=== PATIENT | female | born 1980 | race Caucasian/White ===

== ENCOUNTER 2017-01-07 14:35 | Inpatient (IN) ==
[2017-01-07] MEDS ORDERED: 0.9 % Sodium Chloride 1,000 ML IVC ONE (14:45)
--- NOTE | 2017-01-07 14:50 | Emergency Department Note ---
Disposition Clinical Impression: Focal neurological deficit, Left-sided weakness, Paresthesia of left upper extremity, Slurred speech, Facial paresthesia Disposition: Admitted As Inpatient Condition: Serious Time of Disposition: 19:54 Neuro HPI - General Chief Complaint: ED Neuro Symptoms/Deficit Stated Complaint: facial numbness LKW 0900 Time Seen by Provider: 01/07/17 14:44 Source: patient Limitations: no limitations Nursing Notes Reviewed: Yes Vital Signs Reviewed: Yes - History of Present Illness HPI Narrative: Patient's 36-year-old female complains of left-sided weakness and slurred speech and numbness to the left side of her face from the cheek down. She states her symptoms started 0 900 this morning. Patient thought symptoms would resolve and did not come in until symptoms worsen. Patient has previous history of clotting disorder. Unknown type. Patient currently not on any anticoagulants patient PCP is Dr. Mcguire - Related Data Home Medications: Home Medications Medication Instructions Recorded Confirmed Citalopram Hydrobromide [Celexa] 40 mg PO DAILY 07/10/15 11/30/15 Metoprolol [Lopressor] 25 mg PO DAILY 07/10/15 11/30/15 Nicotine Patch [Nicoderm] 21 mg TD DAILY 07/23/15 11/30/15 hydroCHLOROthiazide 12.5 mg PO DAILY 07/23/15 11/30/15 [Hydrochlorothiazide] Aspirin 325 mg PO DAILY 11/18/15 11/30/15 traMADol [Ultram] 50 mg PO Q12H 11/18/15 11/30/15 Previous Rx's Medication Instructions Recorded Acetaminophen/Butalbital/Caffe 1 each PO Q6HR PRN #15 tablet 11/19/15 [Fioricet] Atorvastatin [Lipitor] 40 mg PO HS tablet 11/19/15 Aspirin [Lo-Dose Aspirin EC] 81 mg PO DAILY #30 tablet. 11/30/15 Folic Acid 1 mg PO DAILY #30 tablet 11/30/15 Rivaroxaban [Xarelto] 10 mg PO 1700 #30 tablet 11/30/15 Hydrocodone/Acetaminophen [[place] 1 tab PO Q6H PRN #8 tab 02/02/16 5-325 Tablet] Guaifenesin [Mucinex] 1,200 mg PO BID PRN #20 tab.er.12h 03/23/16 Allergies/Adverse Reactions: Allergies Allergy/AdvReac Type Severity Reaction Status Date / Time Sulfa (Sulfonamide Allergy Hives Verified 01/07/17 15:07 Antibiotics) All systems ED: reviewed and negative except as stated. Review of Systems: As Per HPI Constitutional: Reports: weakness. Denies: fever, chills Past Medical History - Past Medical History Attestation: Yes The following information was validated with the patient. Source: patient Medical history: Reports: atrial fibrillation, CVA, hypertension, pulmonary embolus, TIA, other Surgical history: Reports: other () Psychiatric history: Reports: anxiety, depression POT FLUXER history: Reports: no POT FLUXER history - Social History Smoking Status: Current every day smoker Smokeless Tobacco Status: No Alcohol use: Reports: none Drug use: Reports: none Physical Exam - General Limitations: no limitations General appearance: alert, in no apparent distress - Head Head exam: atraumatic, normocephalic, normal inspection - Eye Eye exam: Present: normal appearance, PERRL, EOMI - ENT ENT exam: normal exam, normal oropharynx, mucous membranes moist - Neck Neck exam: Present: normal inspection, full ROM, trachea midline - Chest Chest inspection: Present: normal inspection, symmetric chest wall rise - Respiratory Respiratory exam: Present: normal lung sounds bilaterally - Cardiovascular Cardiovascular exam: Present: regular rate, normal rhythm, normal heart sounds - Abdominal Exam Abdominal exam: Present: soft, Non-Tender. Absent: tenderness, distention, guarding, rebound, rigidity - Extremities Exam Extremities exam: Present: normal inspection, full ROM, normal capillary refill. Absent: tenderness, pedal edema - Expanded Lower Extremity Exam Hip/Pelvis exam: Present: normal inspection, full ROM Upper leg exam: Present: normal inspection, full ROM Knee exam: Present: normal inspection, full ROM Lower leg exam: Present: normal inspection, full ROM Ankle exam: Present: normal inspection, full ROM Foot/toe exam: Present: normal inspection, full ROM Neurovascular/Tendon exam: Absent: motor deficit, sensory deficit, tendon deficit - Back Exam Back exam: Present: normal inspection, full ROM. Absent: tenderness, CVA tenderness (R), CVA tenderness (L) - Neurological Exam Neurological exam: Present: alert, oriented X3, other (Patient has focal deficits of left-sided weakness. Paresthesias to left upper extremity. Patient has no noticeable facial droop but does have some ) Course - Consultations Consultation #1: Dr. Mcadams of Neurology at [facility] states that since patient is not a TPA window he will assess her but has a pressing case right now. He will call back in 30 minutes Time: 15:38 Consultation #2: Dr. John Alfonso the hospitalist has accepted patient for admission at 1832 hrs. Time: 18:35 Vital Signs Temperature 98.5 F 01/07/17 14:36 Pulse Rate 112 01/07/17 14:36 Respiratory Rate 18 01/07/17 14:36 Blood Pressure 128/91 01/07/17 14:36 O2 Sat by Pulse Oximetry 97 01/07/17 14:36 Temperature 98.5 F 01/07/17 14:36 Pulse Rate 79 01/07/17 19:30 Respiratory Rate 20 01/07/17 19:32 Blood Pressure 128/74 01/07/17 19:32 O2 Sat by Pulse Oximetry 98 01/07/17 15:04 Oxygen Delivery Oxygen Delivery Room Air Neuro Symptoms/Deficit - MDM Narrative Medical decision making narrative: Stroke called for 36-year-old female with left-sided weakness, numbness to her left side of her face and some slurring or speech patient has an INH score 5. Patient's cranial out of the window for TPA. Stroke alert called for evaluation by [facility] because patient may be a candidate for embolectomy if symptoms occur less than 12 hours. Patient confirm having a stroke. Discussion with neurology and [facility] after evaluation he stated patient most likely has small vessel infarct given her symptoms. She does recommend CTA of head and neck to look for any large vessel embolization. If any are found he requests callback. Patient may be eligible for embolectomy and that time. Patient started on heparin for history of A. fib which may be the cause of patient's embolization. His sudden heparin drip as well. Patient is accepted for admission - Lab Data Lab results reviewed: Yes I reviewed the patient's lab results. Lab results narrative: Short CBC 01/07/17 Range/Units 15:07 WBC 7.0 (4.3-11.1) K/mcL Hgb 10.6 L (11.5-15.4) g/dL Hct 35.3 (35.3-44.9) % Plt Count 207 (140-400) K/mcL Neutrophils # 4.9 (1.6-8.9) K/mcL BMP 01/07/17 Range/Units 15:07 Sodium 137 (136-145) mEq/L Potassium 4.0 (3.5-4.5) mEq/L Chloride 105 (98-109) mEq/L Carbon Dioxide 22 (19-29) mEq/L BUN 13 (7-20) mg/dL Creatinine 0.73 (0.57-1.11) mg/dL Glucose 86 (70-99) mg/dL Calcium 9.4 (8.6-10.8) mg/dL Cardiac Enzymes 01/07/17 Range/Units 15:07 Troponin I 0.00 (0-0.03) ng/mL Result diagrams: 01/07/17 15:07 01/07/17 15:07 Lab Results 01/07/17 01/07/17 01/07/17 Range/Units 14:48 15:07 15:07 WBC 7.0 (4.3-11.1) K/mcL RBC 4.60 (3.82-4.97) M/mcL Hgb 10.6 L (11.5-15.4) g/dL Hct 35.3 (35.3-44.9) % MCV 76.7 L (83.0-100.0) fL MCH 23.0 L (28.0-33.3) pg MCHC 30.0 L (31.6-35.5) g/dL RDW 16.4 H (11.5-14.5) % Plt Count 207 (140-400) K/mcL MPV 10.4 (9.4-12.4) fL Immature Gran % 0.4 (0-4) % Seg Neutrophils % 70.6 % Lymphocytes % 23.3 % Monocytes % 4.6 % Eosinophils % 0.7 % Basophils % 0.4 % Neutrophils # 4.9 (1.6-8.9) K/mcL Lymphocytes # 1.6 (0.6-4.6) K/mcL Monocytes # 0.3 (0.0-1.3) K/mcL Eosinophils # 0.1 (0.0-0.6) K/mcL Basophils # 0.0 (0.0-0.2) K/mcL PT 12.4 H (9.4-12.1) Seconds INR 1.1 APTT 29.2 (26.0-36.0) Seconds Sodium (136-145) mEq/L Potassium (3.5-4.5) mEq/L Chloride (98-109) mEq/L Carbon Dioxide (19-29) mEq/L BUN (7-20) mg/dL Creatinine (0.57-1.11) mg/dL Est GFR ( Amer) (> 60) Est GFR (Non-Af Amer) (> 60) BUN/Creatinine Ratio (6-26) Glucose (70-99) mg/dL POC Glucose 105 H (58-89) Calculated Osmolality (280-300) Calcium (8.6-10.8) mg/dL Troponin I (0-0.03) ng/mL Beta HCG, Quant (0-4) mIU/ml 01/07/17 01/07/17 01/07/17 Range/Units 15:07 15:07 15:07 WBC (4.3-11.1) K/mcL RBC (3.82-4.97) M/mcL Hgb (11.5-15.4) g/dL Hct (35.3-44.9) % MCV (83.0-100.0) fL MCH (28.0-33.3) pg MCHC (31.6-35.5) g/dL RDW (11.5-14.5) % Plt Count (140-400) K/mcL MPV (9.4-12.4) fL Immature Gran % (0-4) % Seg Neutrophils % % Lymphocytes % % Monocytes % % Eosinophils % % Basophils % % Neutrophils # (1.6-8.9) K/mcL Lymphocytes # (0.6-4.6) K/mcL Monocytes # (0.0-1.3) K/mcL Eosinophils # (0.0-0.6) K/mcL Basophils # (0.0-0.2) K/mcL PT (9.4-12.1) Seconds INR APTT (26.0-36.0) Seconds Sodium 137 (136-145) mEq/L Potassium 4.0 (3.5-4.5) mEq/L Chloride 105 (98-109) mEq/L Carbon Dioxide 22 (19-29) mEq/L BUN 13 (7-20) mg/dL Creatinine 0.73 (0.57-1.11) mg/dL Est GFR ( Amer) > 60 (> 60) Est GFR (Non-Af Amer) > 60 (> 60) BUN/Creatinine Ratio 18 (6-26) Glucose 86 (70-99) mg/dL POC Glucose (58-89) Calculated Osmolality 283 (280-300) Calcium 9.4 (8.6-10.8) mg/dL Troponin I 0.00 (0-0.03) ng/mL Beta HCG, Quant < 1 (0-4) mIU/ml - Radiology Data Radiology results reviewed: Yes I reviewed the patient's radiology results. Chest X-Ray 01/07/17 14:46 IMPRESSION: No acute findings. D/ / 01/07/2017 15:32:13 Horace Ellis MD / sourav Interpreting Provider: Horace Ellis MD Head CT 01/07/17 14:46 IMPRESSION: No acute intracranial abnormality. Findings were discussed with Lazaro at 12:05 pm on 01/07/2017. D/ / Fernando Duarte MD / Fernando Duarte MD Interpreting Provider: Fernando Duarte MD - EKG Data EKG attestation: Yes I reviewed and interpreted this EKG. EKG results narrative: EKG taken 01/07/2017 at 1459 hrs. shows a sinus rhythm at a rate of 90 bpm with no acute ST elevations or depressions and a leads, no QRS widening or QT prolongation. There is EKG for comparison taken 07/31/2016 also shows sinus rhythm at a rate of 92 bpm. No signs of ischemia NIH Stroke Scale - Level of Consciousness LOC: Alert - LOC Questions LOC Questions: Answers both correctly - LOC Commands LOC Commands: Performs both correctly - Best Gaze Best Gaze: Normal - Visual Visual: No visual loss - Facial Palsy Facial Palsy: Minor asymmetry on smiling, flattened nasolabial fold - Motor Arms Motor Arm-Left: Drift, does NOT hit bed Motor Arm-Right: No drift for 10 seconds - Motor Legs Motor Leg-Left: Drift, does NOT hit bed Motor Leg-Right: No drift for 5 seconds - Limb Ataxia Limb Ataxia: Absent of affected limb too weak to perform exam - Sensory Sensory: Mild to moderate loss, "not as sharp" - Best Language Best Language: No aphasia - Dysarthria Dysarthria: Mild, slurs some words - Extinction and Inattention Extinction and Inattention: Normal - NIHSS Total Score NIHSS Total Score: 5 TPA Checklist - LKW: 3-4.5 hrs Add. Warnings/Precautions Patient/family understanding: The patient/family members have been counseled and understood the risk, benefit , and alternatives of treatment. Critical Care Time Critical Care Time: Yes Total Critical Care Time: 35 Attestation: Critical care time for this patient was 35 minutes managing patient's stroke this is exclusive of other billable procedures. Attestation Statement - Attestation Attestation: Patient was seen with resident physician. I reviewed the history, physical, assessment and plan, and agree with the findings. I also personally evaluated this patient and had [id number] time with this patient. 36-year-old female presents to the emergency department with chief complaint of CVA. Patient has a history of same secondary to coagulopathy, however she has not been taking her anticoagulants as they were discontinued. Her symptoms started approximately 9 AM which was out of the TPA window at the time of presentation, this started as a facial droop on the left side and progressed to weakness in the left upper and lower extremity as well. She denies other symptoms. She said she has a variety of TIAs and she delayed coming to the hospital because she was hoping it would resolve spontaneously however they did not. On examination vital signs are stable. ENT she has facial droop on the left side. Heart regular rhythm and rate. Lungs clear. Abdomen soft nontender. Extremities unremarkable. Neurologically patient has an NIH score of approximately 5-6 with weakness in the left upper and lower extremity. She also has facial droop on the left side. A stroke alert was called upon patient' s arrival to the emergency department. A CT scan of the head did not reveal any acute abnormalities. Labs are also unremarkable. We spoke with [facility] who did do a telemedicine consultation sometime after the patient's arrival. With her being out of the TPA window unfortunately they had a triage her behind another patient. Per neurology's recommendation they wanted a CTA of the head and neck. And to have her admitted to the hospital here with starting back on anticoagulation therapy. Will start patient on heparin long the emergency department we will notify the hospitalist service and will order tests per neurology's request. Patient hemodynamically remained stable but symptomatic. Critical care time was 35 minutes. Agree with the resident physician assessment and plan.
[2017-01-07 15:10] LABS: Basophils % 0.4 %; Eosinophils # 0.1 K/mcL (0.0-0.6); Eosinophils % 0.7 %; Hematocrit 35.3 % (35.3-44.9); Hemoglobin 10.6 g/dL (11.5-15.4); Immature Granulocytes % 0.4 % (0-4); Lymphocytes # 1.6 K/mcL (0.6-4.6); Lymphocytes % 23.3 %; Mean Corpuscular Volume 76.7 fL (83.0-100.0); Mean Platelet Volume 10.4 fL (9.4-12.4); Monocytes # 0.3 K/mcL (0.0-1.3); Monocytes % 4.6 %; Neutrophils # 4.9 K/mcL (1.6-8.9); Platelet Count 207 K/mcL (140-400); Red Cell Distribution Width 16.4 % (11.5-14.5); Segmented Neutrophils % 70.6 %
[2017-01-07 15:20] LABS: INR 1.1; Prothrombin Time 12.4 Seconds (9.4-12.1)
[2017-01-07 15:22] LABS: Activated Partial Thrombo Time 29.2 Seconds (26.0-36.0)
[2017-01-07 15:25] LABS: BUN/Creatinine Ratio 18 (6-26); Blood Urea Nitrogen 13 mg/dL (7-20); Calcium 9.4 mg/dL (8.6-10.8); Carbon Dioxide 22 mEq/L (19-29); Chloride 105 mEq/L (98-109); Glucose 86 mg/dL (70-99); Osmolality,Calculated 283 (280-300); Sodium 137 mEq/L (136-145); eGFR For African Americans > 60 (> 60); eGFR For Non-African Americans > 60 (> 60)
[2017-01-07] MEDS ORDERED: *HR* Heparin 5,000 UNIT/ML VIAL IVP ONE (17:54)
[2017-01-07] MEDS: Heparin 25,000 UNIT/500 ML D5W 25,000 UNIT/500 ML MLS IVC SCH (18:54)
--- NOTE | 2017-01-07 20:26 | Internal Med History&Physical ---
<Ap Rm - Last Filed: 01/07/17 21:42> Date of Encounter: 01/07/17 Time of Encounter: 20:26 Assessment and Plan (1) Cerebrovascular accident Current visit: No Status: Acute left-sided weakness, numbness, slurred speech and loss of peripheral vision deficits since 0900 this morning. Patient repoerts stopping Xarelto 6 months ago due to dysfunctional uterine bleeding and currently takes 325mg ASA daily. Consider starting Coumadin CT head was negative in the ED and CTA head and neck was unremarkable. Out of window for tPA. Patient started on low dose Heparin. Continue ASA, beta-bushra, and statin. NPO awaiting ST eval PT/OT consulted. Neurology consulted Qualifiers: CVA mechanism: unspecified Qualified Code(s): I63.9 - Cerebral infarction, unspecified (2) Hypercoagulable state Current visit: No Status: Acute Continue Heparin at this time. Hem/ Onc consulted (3) Tobacco abuse Current visit: No Status: Acute Tobacco cessation discussed, nicotine patch ordered. (4) HTN (hypertension) Current visit: No Status: Acute Continue home Metoprolol Qualifiers: Hypertension type: essential hypertension Qualified Code(s): I10 - Essential (primary) hypertension (5) A-fib Current visit: No Status: Acute Currently in NSR. Patient reports stopping Xarelto 6 months ago due to dysfunctional uterine bleeding and currently takes 325mg ASA daily. Qualifiers: Atrial fibrillation type: paroxysmal Qualified Code(s): I48.0 - Paroxysmal atrial fibrillation (6) Morbid obesity with BMI of 40.0-44.9, adult Current visit: Yes Status: Acute Discussed diet modification and exercise (7) DVT prophylaxis Current visit: No Status: Chronic Heparin Internal Medicine - H&P: HPI Chief complaint: left sided weakness Admitted From: Home Plans for Post Hospital Care: Home History of present illness: Ms. Elliott is a 36 year old female with a PMH of atrial fibrillation, CVA, hypertension, pulmonary embolus, TIA, clotting disorder, and morbid obesity presented c/o left-sided weakness, numbness, slurred speech and vision changes since 0900 this morning. Patient has a positive h/o similar sxs and waited until this evening to come in because she thought the sxs would reslove spontaneously. Patient reports stopping Xarelto 6 months ago due to dysfunctional uterine bleeding and currently takes 325mg ASA daily. CT head was negative in the ED and CTA head and neck was unremarkable. Case discussed with neurologist and patient started on low dose Heparin. Past Med Surg Social Fam HX - Past Medical History Medical history: atrial fibrillation, CVA, hypertension, pulmonary embolus, TIA , other Psychiatric history: anxiety, depression - Past Surgical History Surgical History: other () - Social History Smoking Status: Current every day smoker Smokeless Tobacco Status: No Alcohol use: none Drug use: none Current living situation: With Family (2 children) Activity Level: Independent ambulation - Family History Maternal Grandfather Living Status: Hx Family Cardiac Disorders: Yes (ME) Father Hx Family Cardiac Disorders: Yes (ME) Internal Medicine - H&P: Meds Metoprolol [Lopressor] 25 mg PO DAILY 07/10/15 [History] Nicotine Patch [Nicoderm] 21 mg TD DAILY 07/23/15 [History] Aspirin 325 mg PO DAILY 11/18/15 [History] Atorvastatin [Lipitor] 40 mg PO HS tablet 11/19/15 [Rx] Aspirin [Lo-Dose Aspirin EC] 81 mg PO DAILY #30 tablet. 11/30/15 [Rx] Rivaroxaban [Xarelto] 10 mg PO 1700 #30 tablet 11/30/15 [Rx] 3 Allergy/AdvReac Type Severity Reaction Status Date / Time Sulfa (Sulfonamide Allergy Hives Verified 01/07/17 15:07 Antibiotics) All Systems PM: A 10-system review of systems was performed and is negative for pertinent findings except as documented above in the HPI. - Constitutional Constitutional: lethargy, no chills, no fatigue, no fever(s), no falls, no weight gain, no weight loss - EENT Eyes: blurry vision, change in vision, diplopia, loss of peripheral vision, loss of vision, no photophobia, no spots in vision Nose, mouth and throat: no dysphagia, no nasal congestion, no sore throat - Cardiovascular Cardiovascular ROS IM: no chest pain, no palpitations, no paroxysmal nocturnal dyspnea - Respiratory Respiratory: no cough, no chest congestion, no excessive phlegm production, no change in phlegm color - Gastrointestinal Gastrointestinal: no abdominal pain, no bloating, no diarrhea, no nausea, no vomiting - Genitourinary Genitourinary: no dysuria, no urinary frequency, no urinary urgency - Musculoskeletal Musculoskeletal ROS IM: muscle weakness, numbness, tingling, no back pain, no limited range of motion - Integumentary Integumentary IM: no erythema, no rash - Neurological Neurological ROS: abnormal speech, loss of vision, numbness, tingling, weakness , no abnormal movements, no confusion, no dizziness - Psychiatric Psychiatric: anxiety, depression - Endocrine Endocrine IM: no polydipsia, no polyphagia, no polyuria - Constitutional Vitals: Temp Pulse Resp BP Pulse Ox 98.5 F 79 20 128/74 98 01/07/17 14:36 01/07/17 19:30 01/07/17 19:32 01/07/17 19:32 01/07/17 15:04 General appearance: Present: cooperative, A&O X 3, morbidly obese, pleasant, no acute distress, answers questions appropriately - Head Head exam: Present: atraumatic, normal inspection, normocephalic - Eye Eye exam: Present: EOMI, PERRL - ENT ENT exam: Present: mucous membranes moist, normal oropharynx - Neck Neck exam general surgery: Present: normal inspection, supple. Absent: lymphadenopathy, tenderness - Respiratory Respiratory exam: Present: CTAB. Absent: rhonchi, wheezes - Cardiovascular Cardiovascular exam: Present: RRR, +S1, +S2 - GI/Abdominal GI/Abdominal exam: Present: normal bowel sounds, soft. Absent: distended, guarding - Extremities Exam Extremities exam: Present: normal inspection, warm, radial pulses palpable and symmetrical. Absent: pedal edema, tenderness - Back Exam Back exam: Present: normal inspection. Absent: paraspinal tenderness, tenderness - Neurological Exam Neurological exam: Present: alert, oriented X3, reflexes normal, facial droop. Absent: altered, no focal deficits, strengths equal and symetr throughout, speech deficit - Expanded Neurological Exam Neurological exam expanded: Present: protecting the airway. Absent: expressive aphasia, receptive aphasia, total aphasia Patient oriented to: Present: person, place, time Speech: Absent: garbled, slurred Cranial Nerves: EOM's intact PM: Normal (loss of left inferior visual field) Cerebellar function: finger to nose: Abnormal Left Upper motor neuron: Babinski sign: Normal Sensory exam: lower extremity light touch: Abnormal Left, upper extremity light touch: Abnormal Left Neuro motor strength exam: LUE: 4, RUE: 5, LLE: 4, RLE: 5 DTR: bicep (L): 2+, bicep (R): 2+, patellar (L): 2+, patellar (R): 2+, tricep (L ): 2+, tricep (R): 2+ Coma Scale Eye Opening: Spontaneous Coma Scale Motor Response: Obeys Commands Coma Scale Verbal Response: Oriented Coma Scale Total: 15 - Psychiatric Psychiatric exam: Present: anxious, flat affect - Skin Skin exam: Present: dry, intact, warm Internal Med - H&P Results - Labs CBC & Chem 7: 01/07/17 15:07 01/07/17 15:07 - EKG Data EKG shows normal: sinus rhythm (ate of 90 bpm with no acute ST elevations or depressions and a leads, no QRS widening or QT prolongation.) - EKG Data Prior EKG available for review: yes When compared to previous EKG: there are significant changes - Impressions Impressions Chest X-Ray 01/07/17 14:46 IMPRESSION: No acute findings. D/ / 01/07/2017 15:32:13 Horace Ellis MD / sourav Interpreting Provider: Horace Ellis MD Head CT 01/07/17 14:46 IMPRESSION: No acute intracranial abnormality. Findings were discussed with Lazaro at 12:05 pm on 01/07/2017. D/ / Fernando Duarte MD / Fernando Duarte MD Interpreting Provider: Fernando Duarte MD Head CTA 01/07/17 17:53 IMPRESSION: 1. Limited intracranial CT angiogram due to timing of the bolus and artifact. There is no focal area of significant segmental narrowing. There is no large aneurysm No focal significant narrowing in the cervical vessels. Detail of the vertebral arteries is limited due to timing of the bolus and artifact. 2. Unremarkable CTA of the head. D/ / David Higgins / David Higgins Interpreting Provider: David Higgins Neck CTA 01/07/17 17:53 IMPRESSION: 1. Limited intracranial CT angiogram due to timing of the bolus and artifact. There is no focal area of significant segmental narrowing. There is no large aneurysm No focal significant narrowing in the cervical vessels. Detail of the vertebral arteries is limited due to timing of the bolus and artifact. 2. Unremarkable CTA of the head. D/ / David Higgins / David Higgins Interpreting Provider: David Higgins <Basim Espana - Last Filed: 01/07/17 22:59> Date of Encounter: 01/07/17 Internal Medicine - H&P: HPI History of present illness: Ms. Elliott is a 36 year old female All Systems PM: A 10-system review of systems was performed and is negative for pertinent findings except as documented above in the HPI. - Constitutional Vitals: Temp Pulse Resp BP Pulse Ox 97.6 F 79 16 109/76 97 01/07/17 20:30 01/07/17 19:30 01/07/17 20:30 01/07/17 20:30 01/07/17 20:30 Internal Med - H&P Results - Labs CBC & Chem 7: 01/07/17 15:07 01/07/17 15:07 - Attending Attestation I examined this patient and my medical decision-making was reviewed with the Resident Physician. I agree with the documented findings, disposition and treatment plan as described except to the extent set forth below. Patient is a 36-year-old female with past medical history of atrial fibrillation , multiple CVAs, hypertension, history of PE, history of TIA, factor V Leiden and anxiety and depression and COPD. She presents to the ED today with complaints of left-sided weakness and slurred speech. Symptoms are now gradually improved. CT of the head initially done was negative for any acute bleed. CT angiogram of the head and neck was also negative. ED physician discussed with neurologist at [facility], and it was recommended that patient be admitted here. Symptoms started at 9 AM this morning. Patient is out of the TPA window. I also discussed with Dr. Lombardo, our on-call neurologist. He advised to continue her low-dose IV heparin. Patient is also on aspirin and statin. Oncology consult is also pending. No other acute complaints at this time. Patient states her symptoms have now improved. EKG shows normal sinus rhythm. Heart S1-S2 positive no murmurs. Lungs bilateral good air entry no wheezing. Abdomen soft nontender. Neurological awake and alert, right upper and lower extremity normal strength left upper and lower extremity 4-5. Patient does have left-sided facial. Speech is normal.
[2017-01-07] MEDS ORDERED: *HR* Heparin 5,000 UNIT/ML VIAL IVP PRN ×2 (20:46)
[2017-01-07] MEDS ORDERED: Aspirin 325 MG TABLET PO ONE (20:56)
[2017-01-07] MEDS: Nicotine 21 MG PATCH.TD24 TD SCH (21:34)
[2017-01-08 01:26] LABS: Basophils % 0.4 %; Eosinophils # 0.1 K/mcL (0.0-0.6); Eosinophils % 1.3 %; Hematocrit 32.7 % (35.3-44.9); Hemoglobin 9.7 g/dL (11.5-15.4); Immature Granulocytes % 0.1 % (0-4); Lymphocytes # 2.5 K/mcL (0.6-4.6); Lymphocytes % 36.8 %; Mean Corpuscular HGB Conc 29.7 g/dL (31.6-35.5); Mean Corpuscular Hemoglobin 22.8 pg (28.0-33.3); Mean Corpuscular Volume 76.9 fL (83.0-100.0); Mean Platelet Volume 10.7 fL (9.4-12.4); Monocytes # 0.3 K/mcL (0.0-1.3); Monocytes % 4.6 %; Neutrophils # 3.9 K/mcL (1.6-8.9); Platelet Count 189 K/mcL (140-400); Red Blood Count 4.25 M/mcL (3.82-4.97); Red Cell Distribution Width 16.5 % (11.5-14.5); Segmented Neutrophils % 56.8 %
[2017-01-08 01:41] LABS: INR 1.1; Prothrombin Time 12.4 Seconds (9.4-12.1)
[2017-01-08 01:43] LABS: BUN/Creatinine Ratio 18 (6-26); Blood Urea Nitrogen 12 mg/dL (7-20); Calcium 8.8 mg/dL (8.6-10.8); Carbon Dioxide 24 mEq/L (19-29); Chloride 106 mEq/L (98-109); Chol/HDL Ratio 5.9 (0-4.9); Cholesterol 147 mg/dL (< 200); Glucose 101 mg/dL (70-99); HDL Cholesterol 25 mg/dL (40-59); LDL Cholesterol,Calculated 80 mg/dL (0-99); Osmolality,Calculated 284 (280-300); Potassium 3.8 mEq/L (3.5-4.5); Sodium 137 mEq/L (136-145); Triglycerides 212 mg/dL (< 150); eGFR For African Americans > 60 (> 60); eGFR For Non-African Americans > 60 (> 60)
[2017-01-08 01:45] LABS: Activated Partial Thrombo Time 88.3 Seconds (26.0-36.0)
[2017-01-08] MEDS: Nicotine 21 MG PATCH.TD24 TD SCH (08:59)
--- NOTE | 2017-01-08 10:05 | Internal Med Progress Note ---
<Ishmael Conner - Last Filed: 01/08/17 10:03> Date of Encounter: 01/08/17 Time of Encounter: 10:03 - Assessment and plan (1) Cerebrovascular accident Current Visit: No Status: Acute Assessment and plan: Patient's symptoms appear to be drastically improved although not resolved entirely. CT of the head, and CT of the neck and head were unremarkable. Continue aspirin, beta bushra, statin. Given concern for hypercoagulable state the patient has been started on a heparin drip. Continue this until evaluated by cardiology and hematology. Continue nothing by mouth until evaluated by speech therapy. PT/OT has been consulted. Neurology was consulted by the admitting team, we will defer decision on MRI to neurology. Will check echo to rule out intracardiac thrombus. Qualifiers: CVA mechanism: unspecified Qualified Code(s): I63.9 - Cerebral infarction, unspecified (2) Hypercoagulable state Current Visit: No Status: Acute Assessment and plan: Patient states that she has been told she has got a blood disorder but no one is able to formally diagnose it. She has had a stroke in the past. Was on Xarelto approximately 6 months ago however this was stopped due to dysfunctional uterine bleeding. Heparin drip has been initiated, hematology has been consulted. (3) HTN (hypertension) Current Visit: No Status: Acute Assessment and plan: Blood pressures under good control. Continue home medications. Qualifiers: Hypertension type: essential hypertension Qualified Code(s): I10 - Essential (primary) hypertension (4) A-fib Current Visit: No Status: Acute Assessment and plan: Patient reports that she has had A. fib in the past but "no longer has it". Patient is currently in normal sinus rhythm with rate well controlled. Paroxysmal A. fib without anticoagulation raises the concern for embolic event related to atrial fibrillation. Patient has been placed on a heparin drip. Will check echo to evaluate for possible intracardiac thrombus. Continue beta bushra, cardiac monitoring. Qualifiers: Atrial fibrillation type: paroxysmal Qualified Code(s): I48.0 - Paroxysmal atrial fibrillation - Subjective Interval history: Patient seen and examined at bedside. Patient states that she feels better today. Her numbness and tingling in her left arm has resolved. She feels like the drooping of the left side of her face is much better although not completely back to normal. She denies unilateral weakness, chest pain, palpitations, shortness of breath. - Constitutional Vitals: Temp Pulse Resp BP Pulse Ox 97.5 F L 18 85 113/68 97 01/08/17 03:56 01/08/17 03:56 01/08/17 03:56 01/08/17 03:56 01/08/17 08:46 General appearance: Present: cooperative, A&O X 3, morbidly obese, pleasant, no acute distress, answers questions appropriately - Respiratory Respiratory exam: Present: CTAB. Absent: rales, rhonchi, wheezes - Cardiovascular Cardiovascular exam: Present: RRR. Absent: gallop, rubs, systolic murmur - GI/Abdominal GI/Abdominal exam: Present: normal bowel sounds, soft. Absent: distended, tenderness - Extremities Exam Extremities exam: Present: warm. Absent: pedal edema, tenderness - Neurological Exam Neurological exam: Present: alert, CN II-XII intact, oriented X3, strengths equal and symetr throughout, facial droop (Mild, patient reports that since improved since admission). Absent: motor sensory deficit, no focal deficits, pronater drift Internal Medicine: Result - Labs CBC & Chem 7: 01/08/17 01:08 01/08/17 01:08 Labs: Short CBC 01/08/17 Range/Units 01:08 WBC 6.8 (4.3-11.1) K/mcL Hgb 9.7 L (11.5-15.4) g/dL Hct 32.7 L (35.3-44.9) % Plt Count 189 (140-400) K/mcL Neutrophils # 3.9 (1.6-8.9) K/mcL BMP 01/08/17 01:08 Sodium 137 Potassium 3.8 Chloride 106 Carbon Dioxide 24 BUN 12 Creatinine 0.66 Glucose 101 H Calcium 8.8 Cardiac Enzymes 01/08/17 Range/Units 01:08 Troponin I 0.00 (0-0.03) ng/mL - ABG Interpretation ABG results: PT/INR, D-dimer PT 12.4 Seconds (9.4-12.1) H 01/08/17 01:08 Consult Discharge Plan - Plan Referrals: Vilma Gillespie [Primary Care Provider] - <Guanako Manuel P - Last Filed: 01/08/17 13:34> Date of Encounter: 01/08/17 - Constitutional Vitals: Temp Pulse Resp BP Pulse Ox 97.5 F L 18 85 113/68 97 01/08/17 03:56 01/08/17 03:56 01/08/17 03:56 01/08/17 03:56 01/08/17 08:46 Internal Medicine: Result - Labs CBC & Chem 7: 01/08/17 01:08 01/08/17 01:08 Labs: Short CBC 01/08/17 Range/Units 01:08 WBC 6.8 (4.3-11.1) K/mcL Hgb 9.7 L (11.5-15.4) g/dL Hct 32.7 L (35.3-44.9) % Plt Count 189 (140-400) K/mcL Neutrophils # 3.9 (1.6-8.9) K/mcL BMP 01/08/17 01:08 Sodium 137 Potassium 3.8 Chloride 106 Carbon Dioxide 24 BUN 12 Creatinine 0.66 Glucose 101 H Calcium 8.8 Cardiac Enzymes 01/08/17 Range/Units 01:08 Troponin I 0.00 (0-0.03) ng/mL - ABG Interpretation ABG results: PT/INR, D-dimer PT 12.4 Seconds (9.4-12.1) H 01/08/17 01:08 - Attending Attestation I examined this patient and my medical decision-making was reviewed with the Resident Physician. I agree with the documented findings, disposition and treatment plan as described except to the extent set forth below.
[2017-01-08] MEDS: Aspirin 81 MG TAB.CHEW PO SCH (10:34)
[2017-01-08] MEDS: Heparin 25,000 UNIT/500 ML D5W 25,000 UNIT/500 ML MLS IVC SCH (11:32)
--- NOTE | 2017-01-08 12:54 | Neurology - Consult Note ---
Date of Encounter: 01/08/17 Time of Encounter: 10:15 Assessment and Plan (1) TIA (transient ischemic attack) Current Visit: No Status: Chronic This patient who has an history of stroke and TIA in the past as well as hypercoagulable state with negative workup about 2 years ago at [facility] for any particular abnormality as per patient also has a atrial fibrillation and now she has been off all anticoagulation and had this event seems to be typical TIA. In the current clinical context patient need to be anticoagulated as she remain at high risk for a stroke. She has been started on low-dose heparin according to vascular protocol. We can start Coumadin and once she is therapeutic heparin could be discontinued. She would also need a stroke workup including echocardiogram as well as carotid duplex to look for any embolic source. Qualifiers: Transient cerebral ischemia type: unspecified Qualified Code(s): G45.9 - Transient cerebral ischemic attack, unspecified (2) Hypercoagulable state Current Visit: No Status: Acute According to the patient she has been evaluated in the past and apparently did not find to have any particular abnormality on her blood work I think it would be reasonable to consult hematology oncology to look into more detail about the reason for her multiple DVTs as well as his multiple stroke. Though atrial fibrillation is an independent risk factors for the stroke but at the same time with her history of multiple DVTs and to be reasonable to look into more detail. She denies any history of early stroke in the family members History of Present Illness HPI: Ms. Elliott is a 36 year old female with PMH of atrial fibrillation, CVA 2 Years ago no residual deficit, hypertension, pulmonary embolus, clotting disorder, and morbid obesity presented c/o left-sided weakness, numbness, slurred speech and vision changes since 0900 this morning. Patient waited until evening to come in because she thought the symptoms would resolve spontaneously. nw she feesl back to her baseline, according to the Patient after her last stroke that was about 2 years ago when she was evaluated at [facility]. She had a complete workup including thrombotic tendency profile as well as to look for other causes of the stroke apparently the workup was negative but because she did have multiple DVTs she was started on Xarelto. She continued to be on medication until 6 months ago she stopped it by herself due to uterine bleeding, she takes 325mg ASA daily. In the emergency room her CT of the head was negative as well as CTA head and neck. As patient also noted to be in atrial fibrillation she was started on the low- dose heparin . Past Med Surg Social Fam HX - Past Medical History Medical history: atrial fibrillation, CVA, hypertension, pulmonary embolus, TIA , other Psychiatric history: anxiety, depression - Past Surgical History Surgical History: other () - Social History Smoking Status: Current every day smoker Smokeless Tobacco Status: No Alcohol use: none Drug use: none - Family History Maternal Grandfather Living Status: Hx Family Cardiac Disorders: Yes (ID) Father Hx Family Cardiac Disorders: Yes (ID) Medications and Allergies Metoprolol [Lopressor] 25 mg PO DAILY 07/10/15 [History] Nicotine Patch [Nicoderm] 21 mg TD DAILY 07/23/15 [History] Aspirin 325 mg PO DAILY 11/18/15 [History] Atorvastatin [Lipitor] 40 mg PO HS tablet 11/19/15 [Rx] Aspirin [Lo-Dose Aspirin EC] 81 mg PO DAILY #30 tablet. 11/30/15 [Rx] Rivaroxaban [Xarelto] 10 mg PO 1700 #30 tablet 11/30/15 [Rx] 3 Allergy/AdvReac Type Severity Reaction Status Date / Time Sulfa (Sulfonamide Allergy Hives Verified 01/07/17 15:07 Antibiotics) All Systems: A 10-system review of systems was performed and is negative for pertinent findings except as documented above in the HPI. Physical Examination - Vital Signs Vital Signs: Initial Vital Signs Temp Pulse Resp BP Pulse Ox 98.5 F 112 18 128/91 97 01/07/17 14:36 01/07/17 14:36 01/07/17 14:36 01/07/17 14:36 01/07/17 14:36 - Constitutional General appearance: comfortable - Neurologic Detailed motor examination: full strength in all major muscle groups Motor examination - right side: 5/5: deltoids, biceps, triceps, wrist flexion, wrist extension, head waitress, hip flexors, tibialis Anterior, quadriceps, toe extension (EHL), plantarflexion Motor examination - left side: 5/5: deltoids, biceps, triceps, wrist flexion, wrist extension, hip flexors, head waitress, quadriceps, tibialis Anterior, toe extension (EHL), plantarflexion Reflexes: Biceps: 1+, Triceps: 1+, Brachioradialis: 1+, Patella: 1+, Achilles: 1 + Mental Status Examination: awake, alert, oriented to person, oriented to place, oriented to time, follows commands appropriately, answers questions appropriately, no agnosia, no aphasia, no aproxia Cranial nerve examination: PERRL, EOMI, visual andrade intact, corneal reflexes brisk symmetrically, sensory to face intact, mastication intact, no facial asymmetry is present, no dysarthria, hearing is intact symmetrically, soft palate elevates bilaterally upon phonation, gag reflex intact, flexes SCM and trapezius muscles symmetrically with full power, tongue protrudes midline, no atrophy or facial fasiculations present Cerebellar examination: no dysmetria, no gait ataxia, no truncal ataxia, no difficulty with rapid alternating movements Results - Laboratory Findings CBC and BMP: 01/08/17 01:08 01/08/17 01:08 Abnormal lab findings: Abnormal lab results Hgb 9.7 g/dL (11.5-15.4) L 01/08/17 01:08 Hct 32.7 % (35.3-44.9) L 01/08/17 01:08 MCV 76.9 fL (83.0-100.0) L 01/08/17 01:08 MCH 22.8 pg (28.0-33.3) L 01/08/17 01:08 MCHC 29.7 g/dL (31.6-35.5) L 01/08/17 01:08 RDW 16.5 % (11.5-14.5) H 01/08/17 01:08 PT 12.4 Seconds (9.4-12.1) H 01/08/17 01:08 APTT 61.2 Seconds (26.0-36.0) H 01/08/17 09:07 Glucose 101 mg/dL (70-99) H 01/08/17 01:08 POC Glucose 105 (58-89) H 01/07/17 14:48 Triglycerides 212 mg/dL (< 150) H 01/08/17 01:08 VLDL Cholesterol, Calc 42 mg/dL (< 31) H 01/08/17 01:08 HDL Cholesterol 25 mg/dL (40-59) L 01/08/17 01:08 Cholesterol/HDL Ratio 5.9 (0-4.9) H 01/08/17 01:08 - Diagnostic Findings Additional findings: Limited intracranial CT angiogram due to timing of the bolus and artifact. There is no focal area of significant segmental narrowing. There is no large aneurysm No focal significant narrowing in the cervical vessels. Detail of the vertebral arteries is limited due to timing of the bolus and artifact. Unremarkable CTA of the head. Consult Discharge Plan - Plan Referrals: Vilma Gillespie [Primary Care Provider] -
[2017-01-08] MEDS ORDERED: Acetaminophen 325 MG TABLET PO PRN (15:17)
[2017-01-09 06:05] LABS: Basophils % 0.4 %; Eosinophils # 0.1 K/mcL (0.0-0.6); Eosinophils % 1.4 %; Hematocrit 33.4 % (35.3-44.9); Immature Granulocytes % 0.2 % (0-4); Lymphocytes # 1.6 K/mcL (0.6-4.6); Lymphocytes % 31.4 %; Mean Corpuscular HGB Conc 29.9 g/dL (31.6-35.5); Mean Platelet Volume 11.1 fL (9.4-12.4); Monocytes # 0.3 K/mcL (0.0-1.3); Monocytes % 5.5 %; Platelet Count 180 K/mcL (140-400); Red Blood Count 4.34 M/mcL (3.82-4.97); Red Cell Distribution Width 16.2 % (11.5-14.5); Segmented Neutrophils % 61.1 %
[2017-01-09 06:19] LABS: BUN/Creatinine Ratio 17 (6-26); Blood Urea Nitrogen 12 mg/dL (7-20); Carbon Dioxide 24 mEq/L (19-29); Chloride 107 mEq/L (98-109); Glucose 93 mg/dL (70-99); Magnesium 2.1 mg/dL (1.6-2.6); Osmolality,Calculated 285 (280-300); Potassium 4.2 mEq/L (3.5-4.5); Sodium 138 mEq/L (136-145); eGFR For African Americans > 60 (> 60); eGFR For Non-African Americans > 60 (> 60)
[2017-01-09] MEDS ORDERED: Perflutren Lipid Microsphere 1.3 ML in 0.9 % Sodium Chloride 8.7 ML IVP ONE (07:36)
[2017-01-09] MEDS: Aspirin 81 MG TAB.CHEW PO SCH (09:32)
[2017-01-09] MEDS: Nicotine 21 MG PATCH.TD24 TD SCH (09:32)
--- NOTE | 2017-01-09 09:52 | Neurology Progress Note ---
Date of Encounter: 01/09/17 Time of Encounter: 08:00 Assessment and Plan (1) TIA (transient ischemic attack) Current Visit: No Status: Chronic Patient to continue on heparin started on Coumadin until she is therapeutic Hematology consult is pending we will follow the recommendations for thrombotic tendency That she has a stable when she is therapeutic she could be discharged to home NO NEED FOR physical therapy as she did not have any focal neurological deficit on her exam Qualifiers: Transient cerebral ischemia type: unspecified Qualified Code(s): G45.9 - Transient cerebral ischemic attack, unspecified (2) Hypercoagulable state Current Visit: No Status: Acute Subjective Interval history: Patient is stable denies any other new symptoms or any other new problems, MRI of the brain is negative for any acute infarct D shows evidence of old infarct Objective - Constitutional Vitals: Temp Pulse Resp BP Pulse Ox 98.4 F 80 16 109/77 99 01/09/17 09:06 01/09/17 09:06 01/09/17 09:06 01/09/17 09:06 01/09/17 09:06 - Neurological Exam Motor Examination: Present: full strength in all major muscle groups Motor examination - left side: 5/5: deltoids, biceps, triceps, wrist flexion, wrist extension, hip flexors, parking inspector, quadriceps, tibialis Anterior, toe extension (EHL), plantarflexion Mental Status Examination: Present: awake, alert, oriented to person, oriented to place, oriented to time, follows commands appropriately, answers questions appropriately, no agnosia, no aphasia, no aproxia Cranial nerve examination: Present: PERRL, EOMI, visual andrade intact, corneal reflexes brisk symmetrically, sensory to face intact, mastication intact, no facial asymmetry is present, no dysarthria, hearing is intact symmetrically, soft palate elevates bilaterally upon phonation, gag reflex intact, flexes SCM and trapezius muscles symmetrically with full power, tongue protrudes midline, no atrophy or facial fasiculations present Cerebellar examination: Present: no dysmetria, no gait ataxia, no truncal ataxia , no difficulty with rapid alternating movements Results - Laboratory Findings CBC and BMP: 01/09/17 05:42 01/09/17 05:42 Abnormal lab findings: Abnormal lab results Hgb 10.0 g/dL (11.5-15.4) L 01/09/17 05:42 Hct 33.4 % (35.3-44.9) L 01/09/17 05:42 MCV 77.0 fL (83.0-100.0) L 01/09/17 05:42 MCH 23.0 pg (28.0-33.3) L 01/09/17 05:42 MCHC 29.9 g/dL (31.6-35.5) L 01/09/17 05:42 RDW 16.2 % (11.5-14.5) H 01/09/17 05:42 PT 12.4 Seconds (9.4-12.1) H 01/08/17 01:08 POC Glucose 105 (58-89) H 01/07/17 14:48 Triglycerides 212 mg/dL (< 150) H 01/08/17 01:08 VLDL Cholesterol, Calc 42 mg/dL (< 31) H 01/08/17 01:08 HDL Cholesterol 25 mg/dL (40-59) L 01/08/17 01:08 Cholesterol/HDL Ratio 5.9 (0-4.9) H 01/08/17 01:08 Consult Discharge Plan - Plan Referrals: Vilma Gillespie [Primary Care Provider] -
--- NOTE | 2017-01-09 11:46 | Internal Med Progress Note ---
<MateobenniekermitWilson stevens - Last Filed: 01/09/17 14:32> Date of Encounter: 01/09/17 Time of Encounter: 11:00 - Assessment and plan (1) TIA (transient ischemic attack) Current Visit: No Status: Chronic Assessment and plan: Patient's symptoms have resolved. Continue ASA, Statin, heparin drip Will start patient on coumadin. MRI negative for acute infarct. Qualifiers: Transient cerebral ischemia type: unspecified Qualified Code(s): G45.9 - Transient cerebral ischemic attack, unspecified (2) Hypercoagulable state Current Visit: No Status: Acute Assessment and plan: Awaiting Hematology consult Pt has hx of hypercoaguable state was on xarelto, but had to stop due to dysfunctional uterine bleeding Will start coumadin tonight. Continue Heparin drip. Hx of stroke and DVTs in the past. (3) HTN (hypertension) Current Visit: No Status: Acute Assessment and plan: Chronic Blood pressures well controled Continue home medications. Qualifiers: Hypertension type: essential hypertension Qualified Code(s): I10 - Essential (primary) hypertension (4) A-fib Current Visit: No Status: Acute Assessment and plan: Patient reports hx of paroxsysmal a fib. ECHO negative for intra atrial thrombus Currently regular Continue to monitor. Starting patient on coumadin. . Qualifiers: Atrial fibrillation type: paroxysmal Qualified Code(s): I48.0 - Paroxysmal atrial fibrillation (5) Morbid obesity with BMI of 40.0-44.9, adult Current Visit: Yes Status: Acute (6) Tobacco abuse Current Visit: No Status: Acute Assessment and plan: Continue nicotine patch - Subjective Interval history: Patient reports feeling fine and being back to baseline. She has no complaints at this time. - Constitutional Vitals: Temp Pulse Resp BP Pulse Ox 98.4 F 89 16 115/72 99 01/09/17 09:06 01/09/17 09:30 01/09/17 09:30 01/09/17 09:30 01/09/17 09:30 General appearance: Present: cooperative, A&O X 3, morbidly obese, pleasant, no acute distress, answers questions appropriately - Head Head exam: Present: atraumatic, normocephalic - Eye Eye exam: Present: PERRL, conjuntiva pink, sclera anicteric Pupils: Present: PERRL - Neck Neck exam general surgery: Present: supple, trachea midline - Respiratory Respiratory exam: Present: CTAB. Absent: accessory muscle use, rales, rhonchi, wheezes - Cardiovascular Cardiovascular exam: Present: RRR, +S1, +S2. Absent: diastolic murmur, gallop, rubs, systolic murmur - GI/Abdominal GI/Abdominal exam: Present: normal bowel sounds, soft, no peritoneal signs. Absent: distended, tenderness - Extremities Exam Extremities exam: Present: warm. Absent: calf tenderness, cyanotic, pedal edema - Neurological Exam Neurological exam: Present: alert, CN II-XII intact, oriented X3, no focal deficits. Absent: facial droop, speech deficit - Skin Skin exam: Present: dry, intact Internal Medicine: Result - Labs CBC & Chem 7: 01/09/17 05:42 01/09/17 05:42 Labs: Short CBC 01/09/17 Range/Units 05:42 WBC 4.9 (4.3-11.1) K/mcL Hgb 10.0 L (11.5-15.4) g/dL Hct 33.4 L (35.3-44.9) % Plt Count 180 (140-400) K/mcL Neutrophils # 3.0 (1.6-8.9) K/mcL BMP 01/09/17 05:42 Sodium 138 Potassium 4.2 Chloride 107 Carbon Dioxide 24 BUN 12 Creatinine 0.71 Glucose 93 Calcium 9.0 - ABG Interpretation ABG results: PT/INR, D-dimer PT 12.4 Seconds (9.4-12.1) H 01/08/17 01:08 - Impressions Impressions Brain MRI 01/08/17 12:12 IMPRESSION: Right occipital encephalomalacia with gliosis No acute infarct, acute hemorrhage or mass lesion. D/ / David Higgins / David Higgins Interpreting Provider: David Higgins Echocardiogram 01/09/17 07:47 Impressions: LVEF 55-60%. Normal LV chamber size, wall thickness and function. Normal left ventricular diastolic function. Normal right ventricular structure and function. No evidence of a PFO with agitated saline contrast. No evidence of pulmonary hypertension. No significant valvular dysfunction. Left Ventricular Wall Motion: Rest Echo Findings All wall segments showed normal motion. Findings: Study Quality * Technically adequate exam. ECG Findings * Normal sinus rhythm. Left Ventricle * LVEF 55-60%. * Normal LV chamber size, wall thickness and function. * Normal left ventricular diastolic function. Right Ventricle * Normal right ventricular structure and function. Left Atrium * Normal left atrial size. Right Atrium * Normal right atrial size. Interatrial Septum * No evidence of a PFO with agitated saline contrast. Aortic Valve * Aortic valve not well visualized. * No aortic regurgitation. * No aortic stenosis. Mitral Valve * Normal mitral valve structure and function. * No mitral regurgitation. * No mitral stenosis. Tricuspid Valve * Normal tricuspid valve structure and function. * Trace tricuspid regurgitation. * No evidence of pulmonary hypertension. Pulmonic Valve * Normal pulmonic valve structure and function. * No pulmonic regurgitation. Aorta * Normally sized aortic root. Pericardium * The pericardium appears normal. IVC * Normal IVC dimensions and inspiratory collapse. Pulmonary Artery * Normal visualized portions of the main pulmonary artery. Consult Discharge Plan - Plan Referrals: Nathan Mcguire MD [Partnered Physician] - Prescriptions: Enoxaparin [Lovenox] 110 mg SQ Q12HR #14 syr <Guanako Manuel P - Last Filed: 01/09/17 18:46> Date of Encounter: 01/09/17 - Constitutional Vitals: Temp Pulse Resp BP Pulse Ox 98.4 F 81 16 129/75 98 01/09/17 16:24 01/09/17 16:24 01/09/17 16:24 01/09/17 16:24 01/09/17 16:24 Internal Medicine: Result - Labs CBC & Chem 7: 01/09/17 05:42 01/09/17 05:42 Labs: Short CBC 01/09/17 Range/Units 05:42 WBC 4.9 (4.3-11.1) K/mcL Hgb 10.0 L (11.5-15.4) g/dL Hct 33.4 L (35.3-44.9) % Plt Count 180 (140-400) K/mcL Neutrophils # 3.0 (1.6-8.9) K/mcL BMP 01/09/17 05:42 Sodium 138 Potassium 4.2 Chloride 107 Carbon Dioxide 24 BUN 12 Creatinine 0.71 Glucose 93 Calcium 9.0 - ABG Interpretation ABG results: PT/INR, D-dimer PT 12.5 Seconds (9.4-12.1) H 01/09/17 13:44 - Impressions Impressions Brain MRI 01/08/17 12:12 IMPRESSION: Right occipital encephalomalacia with gliosis No acute infarct, acute hemorrhage or mass lesion. D/ / David Higgins / David Higgins Interpreting Provider: David Higgins Echocardiogram 01/09/17 07:47 Impressions: LVEF 55-60%. Normal LV chamber size, wall thickness and function. Normal left ventricular diastolic function. Normal right ventricular structure and function. No evidence of a PFO with agitated saline contrast. No evidence of pulmonary hypertension. No significant valvular dysfunction. Left Ventricular Wall Motion: Rest Echo Findings All wall segments showed normal motion. Findings: Study Quality * Technically adequate exam. ECG Findings * Normal sinus rhythm. Left Ventricle * LVEF 55-60%. * Normal LV chamber size, wall thickness and function. * Normal left ventricular diastolic function. Right Ventricle * Normal right ventricular structure and function. Left Atrium * Normal left atrial size. Right Atrium * Normal right atrial size. Interatrial Septum * No evidence of a PFO with agitated saline contrast. Aortic Valve * Aortic valve not well visualized. * No aortic regurgitation. * No aortic stenosis. Mitral Valve * Normal mitral valve structure and function. * No mitral regurgitation. * No mitral stenosis. Tricuspid Valve * Normal tricuspid valve structure and function. * Trace tricuspid regurgitation. * No evidence of pulmonary hypertension. Pulmonic Valve * Normal pulmonic valve structure and function. * No pulmonic regurgitation. Aorta * Normally sized aortic root. Pericardium * The pericardium appears normal. IVC * Normal IVC dimensions and inspiratory collapse. Pulmonary Artery * Normal visualized portions of the main pulmonary artery. - Attending Attestation I examined this patient and my medical decision-making was reviewed with the Resident Physician. I agree with the documented findings, disposition and treatment plan as described except to the extent set forth below.
[2017-01-09 14:04] LABS: INR 1.2; Prothrombin Time 12.5 Seconds (9.4-12.1)
--- NOTE | 2017-01-09 15:45 | Oncology Inp Consult Note ---
<Mercedes Yip E - Last Filed: 01/09/17 16:05> Date of Encounter: 01/09/17 Time of Encounter: 14:00 Assessment and Plan (1) Hypercoagulable state Status: Acute Assessment and plan: Multiple diagnostic tests ordered earlier today. Will await results. Agree with plan to resume Coumadin. Patient is very concerned about cost of medication. Reports she stopped taking anticoagulation secondary to lack of insurance. (2) Tobacco abuse Status: Acute Assessment and plan: Discussion of risks of continued smoking. Patient did agree to be seen at [facility] after discharge. This will need to be arranged. - Data of Consult Patient: known to practice within the last 3 years Consult date: 01/09/17 Requesting Physician: Castro Lemos MD Primary Care Provider: Vilma Gillespie - Consult Narrative Reason for consult: Hypercoagulable state History of present illness: Ms. Elliott is a 36 year old female who has a past medical history of stroke, TIA, atrial fibrillation, hypercoagulable state, pulmonary embolism, DVT left upper extremity. She was admitted through with [place] [facility] with L facial drooping, L sided weakness and blurred vision. When these symptoms did not resolve she presented to ED. She states she had been on Coumadin initially but throughout the course of treatment had been switched to Xarelto. After starting Xarelto she developed vaginal bleeding. She report this is now resolved with Mirena. She states she has not been taking Xarelto for about 6 months secondary to losing insurance and not being able to afford medication. She had not been advised to stop taking anticoagulation. ED CT head negative, CTA head/neck also negative. She was found to be in atrial fibrillation and is on heparin. She has been seen in the clinic by Dr. Gaytan and was also seen at [facility] to date hypercoagulable state workup has been negative. Patient is currentl smoker of 1 PPD. DIscussed importance of smoking cessation and risk associated with continued smoking. States would be will to be seen at smoking cessation clinc after discharge. Per Dr. Gaytan note of 11/30/2015 -he was hospitalized at [facility] in June 2015 with left-sided CVA. She received TPA and had a complete recovery. The MRI of the brain without contrast on 07/06/2015 showed small acute nonhemorrhagic hemorrhagic infarct in the right cerebral hemisphere largest in the right parietal lobe without mass effects. CT angiogram of the neck that was done at that time showed a filling defect in the right carotid bulb and indicated a thrombus and/or dissection resulting in stenosis of the proximal right internal carotid arteries, 70%. The rest arteries were patent. MRI angiogram showed no evidence of dural venous sinus thrombosis in 2016. She has had multiple PEs and DVTs in the past has been on Coumadin off and on. She was not on Coumadin at the time of the stroke. Factor V Leiden and prothrombin gene mutation was negative at [facility] on 2015. Lupus anticoagulant was also negative. Protein C and protein S functional lobe but most likely from Coumadin. In October 2015 she was hospitalized at [facility] with TIA-like symptoms. MRI of the brain on 11/18/2015 was negative an MRI angiogram of the neck and brain on 08/18 was also negative. Her symptoms resolved within about 2 hours of onset. She has not been seen at the [facility] since 11/30/2015-states she lost insurance and could not afford to be seen. I reviewed records from [facility]- she has not been seen there since 2015. Past Med Surg Social Fam HX - Past Medical History Medical history: atrial fibrillation, CVA, DVT (L upper extremity), hypertension , pulmonary embolus, TIA, other Psychiatric history: anxiety, depression - Past Surgical History Surgical History: other ( x 2) - Social History Smoking Status: Current every day smoker Smokeless Tobacco Status: No Alcohol use: none Drug use: none - Family History Maternal Grandfather Living Status: Hx Family Cardiac Disorders: Yes ([place]) Father Hx Family Cardiac Disorders: Yes ([place]) Medications and Allergies Enoxaparin [Lovenox] 110 mg SQ Q12HR #14 syr 01/09/17 [Rx] 3 Allergy/AdvReac Type Severity Reaction Status Date / Time Sulfa (Sulfonamide Allergy Hives Verified 01/07/17 15:07 Antibiotics) Eyes: Present: as per HPI Cardiovascular: Present: irregular heart rhythm. Absent: chest pain, chest pain at rest, chest pain with activity, dyspnea, dyspnea on exertion, edema, leg edema, lightheadedness Respiratory: Absent: cough, dyspnea, dyspnea on exertion, pain on inspiration Gastrointestinal: Absent: abdominal pain, bloating, change in bowel habits, melena Genitourinary: Absent: abnormal vaginal bleeding, dysuria Musculoskeletal: Absent: arthralgias, muscle weakness, myalgias Neurological: Present: headache(s) (occasional). Absent: abnormal gait, abnormal movements, confusion, disequilibrium, dizziness, focal weakness, frequent falls, lack of coordination, loss of vision, numbness, paresthesias, weakness, other visual disturbances Psychiatric: Absent: confusion, depression, memory loss Hematologic/Lymphatic: Absent: easy bleeding, easy bruising, lymphadenopathy Oncology - Exam - Constitutional Vitals: Temp Pulse Resp BP Pulse Ox 98.2 F 66 14 106/64 98 01/09/17 11:47 01/09/17 11:47 01/09/17 11:47 01/09/17 11:47 01/09/17 11:47 General appearance: cooperative, no acute distress, obese - Head Head exam: Present: normal inspection, normocephalic - Eye Pupils: Present: normal accommodation - ENT ENT exam: Present: mucous membranes moist - Neck Neck exam: Present: normal inspection - Respiratory Respiratory exam: Present: CTAB - Cardiovascular Cardiovascular exam: Present: RRR - GI/Abdominal GI/Abdominal exam: Present: normal bowel sounds, soft - Extremities Exam Extremities exam: Present: normal inspection (no obvious edema) - Neurological Exam Neurological exam: Present: CN II-XII intact, strengths equal and symetr throughout Oncology - Results Labs: Short CBC 01/09/17 Range/Units 05:42 WBC 4.9 (4.3-11.1) K/mcL Hgb 10.0 L (11.5-15.4) g/dL Hct 33.4 L (35.3-44.9) % Plt Count 180 (140-400) K/mcL Neutrophils # 3.0 (1.6-8.9) K/mcL BMP 01/09/17 05:42 Sodium 138 Potassium 4.2 Chloride 107 Carbon Dioxide 24 BUN 12 Creatinine 0.71 Glucose 93 Calcium 9.0 Consult Discharge Plan - Plan Referrals: Nathan Mcguire MD [Partnered Physician] - Prescriptions: Enoxaparin [Lovenox] 110 mg SQ Q12HR #14 syr <Virgilio Lam S - Last Filed: 01/09/17 17:05> Date of Encounter: 01/09/17 Assessment and Plan (1) Hypercoagulable state Status: Acute Assessment and plan: I met with Ms. Elliott and agree with her note as written by Ms. Yip. She has a history of recurrent venous thromboses and from this perspective alone, lifelong anticoagulation is indicated. In addition, she has developed recurrent CVA which may be related to the same process as opposed her atrial fibrillation. In either case, lifelong anticoagulation is indicated. I have completed thrombophilia testing for a myeloproliferative neoplasm which could be contributing as she has had extensive evaluation the past which has returned negative. This testing will not change my recommendation for lifelong anticoagulation. I agree with use of Coumadin. She does have a Mirena IUD in place currently so menorrhagia should not be an issue moving forward. From my perspective, she may be discharge once she is therapeutic. I try to maintain an INR close to 2. I will be happy to see her back in my clinic after discharge. I will share results with her once they become available if she is still hospitalized. If you have any concerns or questions, do not hesitate to call my cell phone at [phone] - Data of Consult Requesting Physician: Castro Lemos MD Primary Care Provider: Vilma Gillespie - Consult Narrative History of present illness: Ms. Elliott is a 36 year old female Oncology - Exam - Constitutional Vitals: Temp Pulse Resp BP Pulse Ox 98.4 F 81 16 129/75 98 01/09/17 16:24 01/09/17 16:24 01/09/17 16:24 01/09/17 16:24 01/09/17 16:24 Oncology - Results Labs: Short CBC 01/09/17 Range/Units 05:42 WBC 4.9 (4.3-11.1) K/mcL Hgb 10.0 L (11.5-15.4) g/dL Hct 33.4 L (35.3-44.9) % Plt Count 180 (140-400) K/mcL Neutrophils # 3.0 (1.6-8.9) K/mcL BMP 01/09/17 05:42 Sodium 138 Potassium 4.2 Chloride 107 Carbon Dioxide 24 BUN 12 Creatinine 0.71 Glucose 93 Calcium 9.0
[2017-01-09] MEDS ORDERED: *HR* Warfarin 7.5 MG TABLET PO ONE (18:00)
[2017-01-09] MEDS ORDERED: Warfarin perPT PO SCH (18:00)
[2017-01-09] MEDS: Heparin 25,000 UNIT/500 ML D5W 25,000 UNIT/500 ML MLS IVC SCH (19:57)
--- NOTE | 2017-01-09 21:47 | Electrocardiograph Report ---
[address] [address] Test Date: 2017-01-07 Pat Name: Emely Elliott Department: 105 Room: 2N6 Gender: F Professor Of Education: SUSAN : 1980 Requested By: Castro Lemos Order Number: [id number] Reading MD: Kirk Saxena MD Measurements Intervals [place] Rate: 98 P: 73 OR: 145 QRS: 52 QRSD: 89 T: 54 QT: 336 QTc: 392 Interpretive Statements SINUS RHYTHM Electronically Signed On 01-09-2017 21:45:45 EDT by Kirk Saxena MD
[2017-01-10 02:17] LABS: Basophils % 0.4 %; Eosinophils # 0.1 K/mcL (0.0-0.6); Eosinophils % 1.3 %; Hematocrit 32.7 % (35.3-44.9); Immature Granulocytes % 0.4 % (0-4); Lymphocytes % 35.8 %; Mean Corpuscular HGB Conc 30.6 g/dL (31.6-35.5); Mean Corpuscular Hemoglobin 23.5 pg (28.0-33.3); Mean Corpuscular Volume 76.9 fL (83.0-100.0); Monocytes # 0.3 K/mcL (0.0-1.3); Monocytes % 5.5 %; Neutrophils # 3.1 K/mcL (1.6-8.9); Platelet Count 172 K/mcL (140-400); Red Blood Count 4.25 M/mcL (3.82-4.97); Red Cell Distribution Width 15.9 % (11.5-14.5); Segmented Neutrophils % 56.6 %
[2017-01-10 02:26] LABS: INR 1.1
[2017-01-10 02:32] LABS: BUN/Creatinine Ratio 20 (6-26); Blood Urea Nitrogen 15 mg/dL (7-20); Calcium 9.2 mg/dL (8.6-10.8); Carbon Dioxide 25 mEq/L (19-29); Chloride 106 mEq/L (98-109); Glucose 93 mg/dL (70-99); Magnesium 1.8 mg/dL (1.6-2.6); Osmolality,Calculated 287 (280-300); Potassium 4.1 mEq/L (3.5-4.5); Sodium 138 mEq/L (136-145); eGFR For African Americans > 60 (> 60); eGFR For Non-African Americans > 60 (> 60)
[2017-01-10 07:04] VITALS: BP 122/82
[2017-01-10] MEDS ORDERED: *HR* Enoxaparin 120 MG/0.8 ML SYRINGE SQ SCH (09:00)
[2017-01-10] MEDS: Nicotine 21 MG PATCH.TD24 TD SCH (09:19)
[2017-01-10] MEDS: Aspirin 81 MG TAB.CHEW PO SCH (09:19)
--- NOTE | 2017-01-10 09:36 | Discharge Summary ---
<Wilson Valdivia - Last Filed: 01/10/17 13:59> Date of Encounter: 01/10/17 Time of Encounter: 09:00 - Discharge Diagnosis (1) TIA (transient ischemic attack) Priority: Primary Status: Chronic Qualifiers: Transient cerebral ischemia type: unspecified Qualified Code(s): G45.9 - Transient cerebral ischemic attack, unspecified (2) Hypercoagulable state Priority: Secondary Status: Acute (3) HTN (hypertension) Priority: Secondary Status: Acute Qualifiers: Hypertension type: essential hypertension Qualified Code(s): I10 - Essential (primary) hypertension (4) A-fib Priority: Secondary Status: Acute Qualifiers: Atrial fibrillation type: paroxysmal Qualified Code(s): I48.0 - Paroxysmal atrial fibrillation (5) Morbid obesity with BMI of 40.0-44.9, adult Priority: Secondary Status: Acute (6) Tobacco abuse Priority: Secondary Status: Acute - Discharge Medications Prescriptions: Enoxaparin [Lovenox] 110 mg SQ Q12HR #14 syr Aspirin 81 mg PO DAILY #30 tab Atorvastatin [Lipitor] 40 mg PO HS #30 tablet Metoprolol [Lopressor] 25 mg PO DAILY #30 tablet Nicotine Patch [Nicoderm] 21 mg TD DAILY #30 patch Warfarin [Coumadin] 4 mg PO DAILY #30 tablet Home Medications: Enoxaparin [Lovenox] 110 mg SQ Q12HR #14 syr 01/09/17 [Rx] Aspirin 81 mg PO DAILY #30 tab 01/10/17 [Rx] Atorvastatin [Lipitor] 40 mg PO HS #30 tablet 01/10/17 [Rx] Metoprolol [Lopressor] 25 mg PO DAILY #30 tablet 01/10/17 [Rx] Nicotine Patch [Nicoderm] 21 mg TD DAILY #30 patch 01/10/17 [Rx] Warfarin [Coumadin] 4 mg PO DAILY #30 tablet 01/10/17 [Rx] Allergies/Adverse Reactions: 3 Allergy/AdvReac Type Severity Reaction Status Date / Time Sulfa (Sulfonamide Allergy Hives Verified 01/07/17 15:07 Antibiotics) Procedures/tests Complete & Pending: Procedures Performed prior 72 hours Category Date Time Status MR head/brain wo con [MR] Routine MRI 01/08/17 12:12 Completed ECG 12 lead ECG [ECG] Routine Y 01/07/17 14:59 Completed EV echocardiogram w enhance Routine Y 01/09/17 07:47 Completed CXR: "FINDINGS: No airspace consolidation. Right perihilar nodule remains stable. Heart size is normal. Degenerative changes of the thoracic spine. XR/XR chest 1V portable IMPRESSION: No acute findings." CT Head: "FINDINGS: BRAIN/VENTRICLES: There is no acute intracranial hemorrhage, mass effect or midline shift. No abnormal extra-axial fluid collection. The morales-white differentiation is maintained without evidence of an acute infarct. There is no evidence of hydrocephalus. Encephalomalacia within the right occipital lobe is re- demonstrated. ORBITS: The visualized portion of the orbits demonstrate no acute abnormality. SINUSES: The visualized paranasal sinuses and mastoid air cells demonstrate no acute abnormality. SOFT TISSUES/SKULL: No acute abnormality of the visualized skull or soft tissues. CT/CT stroke alert head wo con IMPRESSION: No acute intracranial abnormality." CTA head/neck: "CT HEAD: BRAIN/VENTRICLES: Evaluation of the brain parenchyma is limited due to technique. Low-density in the right lateral occipital region is again noted. There is no new area of abnormal density. There is no midline shift. ORBITS: The visualized portion of the orbits demonstrate no acute abnormality. SINUSES: The visualized paranasal sinuses and mastoid air cells demonstrate no acute abnormality. SOFT TISSUES/SKULL: No acute abnormality of the visualized skull or soft tissues. CTA HEAD: ANTERIOR CIRCULATION: Anterior circulation is limited due to artifact. Distal internal carotid arteries are patent. There is no large aneurysm. Venous contamination in the cavernous sinus limits portions of the cavernous carotid segments. There is no large area of segmental narrowing. Anterior and middle cerebral arteries are patent without focal area of segmental narrowing or large aneurysm. POSTERIOR CIRCULATION: Posterior cerebral arteries and the basilar artery are diminutive in caliber. There is no definitive narrowing. Small right posterior communicating artery is noted. Posterior cerebral arteries are patent. ANEURYSM: No intracranial aneurysm is seen. CT angiogram neck Aortic arch is normal in appearance. Great vessel origins are widely patent. Both vertebral arteries are small and difficult to characterize due to artifact and venous contamination. Both appear patent. Left common carotid artery, bifurcation and left internal carotid artery are patent. Right common carotid artery, bifurcation and internal carotid artery are patent. Detail is limited due to artifact and timing of the bolus. The jugular veins are more dense than the arteries. Small left thyroid calcification is noted. Low-density lesion in the left thyroid lobe is also noted measuring approximately 12 mm. Statistically, this is likely benign. No follow-up imaging is necessary. Small cervical lymph nodes are noted bilaterally. There is no pathologic enlargement. Spinal canal detail is limited. CT/CT angio head IMPRESSION: 1. Limited intracranial CT angiogram due to timing of the bolus and artifact. There is no focal area of significant segmental narrowing. There is no large aneurysm No focal significant narrowing in the cervical vessels. Detail of the vertebral arteries is limited due to timing of the bolus and artifact. 2. Unremarkable CTA of the head." Brain MRI: "FINDINGS: INTRACRANIAL STRUCTURES/VENTRICLES: Ventricles are at the upper limits of normal in caliber. Sulci are prominent for the patient's age. Encephalomalacia with surrounding gliosis is noted in the right lateral occipital lobe. Punctate foci of increased FLAIR signal are noted in the right parietal cortex on axial image 25. Punctate increased FLAIR signal is noted in the right frontal cortex on image 24 likely artifactual. Small amount of hemosiderin is noted surrounding the encephalomalacia in the right occipital pole. A few dilated perivascular spaces are noted. Flow voids are patent. There is no restricted diffusion signal. No mass effect or midline shift. No abnormal extra-axial fluid collection. The ventricles and sulci are normal in size and configuration. The sellar/suprasellar regions appear unremarkable. The normal signal voids within the major intracranial vessels appear maintained. ORBITS: The visualized portion of the orbits demonstrate no acute abnormality. SINUSES: Mild left and minimal right mastoid opacification is noted. Partial left ethmoid opacification is noted BONES/SOFT TISSUES: The bone marrow signal intensity appears normal. The craniocervical junction is normal in appearance. MR/MR head/brain wo con IMPRESSION: Right occipital encephalomalacia with gliosis No acute infarct, acute hemorrhage or mass lesion."' ECHO: "Impressions: LVEF 55-60%. Normal LV chamber size, wall thickness and function. Normal left ventricular diastolic function. Normal right ventricular structure and function. No evidence of a PFO with agitated saline contrast. No evidence of pulmonary hypertension. No significant valvular dysfunction." Date of admission: 01/07/17 20:09 Primary care physician: Vilma Gillespie Consults: 01/07/17 20:30 Consult to Neurology [CONS] Routine Consulting Provider: Neurology [facility] Reason for Consult: CVA Call Completed: Yes 01/07/17 20:46 Consult to Occupational Therapy [CONS] Routine Comment: Evaluate, develop and implement POC Reason for Consult: cva Consult to Physical Therapy [CONS] Routine Comment: Evaluate, develop and implement POC Reason for Consult: cva Consult to Speech Therapy [CONS] Routine Comment: Evaluate, develop and implement POC Reason for Consult: cva Call Completed: No 01/07/17 21:20 Consult to Oncology [CONS] Routine Consulting Provider: Oncology [facility] Reason for Consult: multiple CVAs, hypercoagulable state Call Completed: No 01/09/17 14:32 Consult to Pharmacy Ancillary [CONS] Routine Reason for SW Consult: rx assistance Discharging clinician: Wilson Valdivia Anticipated date of discharge: 01/10/17 - Patient Status Disposition: Home, Self-Care Condition: Fair Functional capacity at discharge: independent ambulation Overall status at discharge: patient is progressing back to baseline - Discharge Instructions Instructions: Warfarin (By mouth), Aspirin (By mouth), Nicotine (Absorbed through the skin), Enoxaparin (Injection), Atorvastatin (By mouth), Transient Ischemic Attack (DC) Follow Up With: Nathan Mcguire MD [Partnered Physician] - 01/19/17 2:15 pm Virgilio Lam MD [Partnered Physician] - 01/23/17 8:20 am David Lombardo MD [Partnered Physician] - 01/17/17 2:15 pm Additional Instructions: -Please follow up with your primary care provider within 1 week of discharge. -Please follow up with Neurology as scheduled. -Please follow up with Hematology as scheduled. Please follow up at the smoking cessation Clinic as scheduled. Please resume your home medications as prescribed. Please take you coumadin as prescribed and your Lovenox injections as instructed. Please return to the hospital if you experience any new or worsening symptoms. -Please follow up w/ coumadin clinic on discharge. Information on coumadin Clinic appt given to you in handwriting. Appt date & time, and special instructions. - Diet and Activity Activity: resume usual activities as tolerated Diet: other (Cardiac Diet) Interval History: Patient reports feeling well and being eager to go home. She denies numbness, tingling, weakness, chest pain, sob, N, V, D. Hospital course: Ms. Elliott is a 36 year old female c PMHx of atrial fibrillation, CVA, hypertension, DVT, pulmonary embolus, TIA, and hypercoaguable state reported to the hospital complaining of L sided weakness, numbness, slurred speech and loss of peripheral vision Symptoms started at 9am but she did not present until 14: 30 so was outside the TPA window. Her symptoms resolved within 24 hrs of onset and her CT head, CTA head neck, ECHO, and Brain MRI did not show any acute defect. Patient was seen by Neurology, Speech, PT, OT. No need for rehab as patient is back to baseline. Patient was placed on heparin drip. She was then started on coumadin and then transitioned to lovennox. Patient was trained to self administer levennox so she can bridge at home. She was discharged on these plus ASA, and a statin, - Time Spent with Patient Total time spent providing and/or coordinating discharge services:40 minutes - Constitutional Vitals: Temp Pulse Resp BP Pulse Ox 97.8 F 83 16 122/82 98 01/10/17 07:00 01/10/17 07:00 01/10/17 07:00 01/10/17 07:00 01/10/17 07:00 General appearance: Present: cooperative, A&O X 3, morbidly obese, pleasant, no acute distress, answers questions appropriately - Head Head exam: Present: atraumatic, normocephalic - Eye Eye exam: Present: PERRL, conjuntiva pink, sclera anicteric Pupils: Present: PERRL - Neck Neck exam general surgery: Present: supple, trachea midline - Respiratory Respiratory exam: Present: CTAB. Absent: accessory muscle use, rales, rhonchi, wheezes - Cardiovascular Cardiovascular exam: Present: RRR, +S1, +S2. Absent: diastolic murmur, gallop, rubs, systolic murmur - GI/Abdominal GI/Abdominal exam: Present: normal bowel sounds, soft, no peritoneal signs. Absent: distended, tenderness - Extremities Exam Extremities exam: Present: warm. Absent: calf tenderness, cyanotic, pedal edema - Neurological Exam Neurological exam: Present: alert, CN II-XII intact, oriented X3, no focal deficits. Absent: facial droop, speech deficit - Skin Skin exam: Present: dry, intact - Stroke Contraindication Not Initiating IV-Tpa: Medical contraindication (Patient outside the window) Onset of Symptoms Date: 01/07/17 Onset of Symptoms Time: 09:00 Symptom Onset Unknown: No Has Patient Been Evaluated by Rehab for Stroke: Yes Contraindication Rehab Services Not Assessed: Symptoms Resolved <Guanako Manuel P - Last Filed: 01/10/17 18:28> Date of Encounter: 01/10/17 Procedures/tests Complete & Pending: Procedures Performed prior 72 hours Category Date Time Status MR head/brain wo con [MR] Routine MRI 01/08/17 12:12 Completed EV echocardiogram w enhance Routine Y 01/09/17 07:47 Completed Date of admission: 01/07/17 20:09 Primary care physician: Vilma Gillespie Consults: 01/07/17 20:30 Consult to Neurology [CONS] Routine Consulting Provider: Neu[facility] Reason for Consult: CVA Call Completed: Yes 01/07/17 20:46 Consult to Occupational Therapy [CONS] Routine Comment: Evaluate, develop and implement POC Reason for Consult: cva Consult to Physical Therapy [CONS] Routine Comment: Evaluate, develop and implement POC Reason for Consult: cva Consult to Speech Therapy [CONS] Routine Comment: Evaluate, develop and implement POC Reason for Consult: cva Call Completed: No 01/07/17 21:20 Consult to Oncology [CONS] Routine Consulting Provider: Oncology [facility] Reason for Consult: multiple CVAs, hypercoagulable state Call Completed: No 01/09/17 14:32 Consult to Pharmacy Ancillary [CONS] Routine Reason for SW Consult: rx assistance Hospital course: Ms. Elliott is a 36 year old female - Time Spent with Patient Total time spent providing and/or coordinating discharge services: - Constitutional Vitals: Temp Pulse Resp BP Pulse Ox 97.8 F 83 16 122/82 98 01/10/17 07:00 01/10/17 07:00 01/10/17 07:00 01/10/17 07:00 01/10/17 07:00 - Attending Attestation I examined this patient and my medical decision-making was reviewed with the Resident Physician. I agree with the documented findings, disposition and treatment plan as described except to the extent set forth below.
[2017-01-10] MEDS ORDERED: *HR* Warfarin 4 MG TABLET PO ONE (18:00)
[2017-01-12 07:38] LABS: Protein C, Functional 147 % (83-168); Protein S Antigen, Total 130 % (63-126); Protein S, Free 113 % (55-123)
[2017-01-13 12:27] LABS: JAK2 (V617F) Mutation by PCR NOT DETECTED
[2017-01-13 15:16] LABS: MPL codon 515 Mut-PeripheralBl NOT DETECTED
[2017-01-14 10:48] LABS: CALR Exon 9 Mutation Source WHOLE BLOOD
[2017-01-14 11:41] LABS: CALR Exon 9 Mutation Result NOT DETECTED
== END 2017-01-10 14:39 | disposition home or self-care (01) | DRG 47 ==
LOC: EMEROO 14:35 → 2NENU 14:35
PROVIDERS: ADMIT Internal Medicine; ATTEND Internal Medicine

== ENCOUNTER 2017-07-12 13:11 | Inpatient (IN) ==
[2017-07-12] MEDS ORDERED: 0.9 % Sodium Chloride 1,000 ML IVC ONE (13:24)
[2017-07-12 13:45] LABS: Bilirubin,Urine Small (Negative); Blood,Urine Large (Negative); Clarity,Urine Turbid (Clear); Glucose,Urine (UA) Normal (Normal); Ketones,Urine Trace mg/dL (Negative); Leukocyte Esterase,Urine Small (Negative); Nitrite,Urine Negative (Negative); Protein,Urine 100 mg/dL (Neg-Trace); Specific Gravity,Urine 1.028 (1.010-1.025); Urobilinogen,Urine Normal (Normal)
[2017-07-12 13:46] LABS: Bacteria,Urine Few per hpf (None-Few); Hyaline Casts,Urine Few per lpf (None-Few); Squamous Epithelial Cell,Urine Many per lpf (None-Few); WBC,Urine 30-50 per hpf (0-3)
--- NOTE | 2017-07-12 13:46 | Emergency Department Note ---
Disposition Clinical Impression: Vaginal bleeding, Subtherapeutic international normalized ratio (INR) Anemia Qualifiers: Anemia type: iron deficiency Iron deficiency anemia type: chronic blood loss Qualified Code(s): D50.0 - Iron deficiency anemia secondary to blood loss ( chronic) Disposition: Admitted As Inpatient Condition: Good Time of Disposition: 16:40 General Adult HPI - General Chief complaint: ED Recheck/Abnormal Lab/Rx Stated complaint: Low hemoglobin Time Seen by Provider: 07/12/17 13:22 Source: patient Mode of arrival: ambulatory Limitations: no limitations Nursing Notes Reviewed: Yes Vital Signs Reviewed: Yes - History of Present Illness HPI Narrative: 36 year old female with significant past medical history of DVT, PE, CVA, and anemia presenting to the ED with chief complaint of symptomatic anemia. Patient states she has been feeling weak with muscle cramping for the past 1-2 weeks. Patient states she has needed blood transfusions multiple times in the past. She is currently taking warafin. Patient has been fully worked up by hematology with no known underlying cause for her hypercoaguable state. Patient denies chest pain or shortness of breath. She does disclose vaginal bleeding for the past 2-3 months. She states bleeding goes between heavy and light. She states it is light at this time. She has been seen by OBGYN for this previously. Patient denies any rectal bleeding. Patient had routine blood work completed and was told her hemoglobin was 5.9. Pain Scale: 9 - Related Data Home Medications Medication Instructions Recorded Confirmed Atorvastatin [Lipitor] 10 mg PO HS 07/12/17 07/12/17 Metoprolol Succinate [Toprol Xl] 25 mg PO DAILY 07/12/17 07/12/17 Previous Rx's Medication Instructions Recorded Aspirin 81 mg PO DAILY #30 tab 01/10/17 Warfarin [Coumadin] 4 mg PO DAILY #30 tablet 01/10/17 Allergies Allergy/AdvReac Type Severity Reaction Status Date / Time Sulfa (Sulfonamide Allergy BAD RASH, Verified 07/12/17 13:50 Antibiotics) THROAT SWOLLEN All systems ED: reviewed and negative except as stated. Genitourinary: Reports: abnormal menses Musculoskeletal: Reports: myalgia Neurological: Reports: weakness Past Medical History - Past Medical History Attestation: Yes The following information was validated with the patient. Medical history: Reports: atrial fibrillation, CVA, DVT, hypertension, pulmonary embolus, TIA, other Surgical history: Reports: other ( x 2) Psychiatric history: Reports: anxiety, depression BOAT REPAIRER history: Reports: no BOAT REPAIRER history - Social History Smoking Status: Current some day smoker Smokeless Tobacco Status: No Alcohol use: Reports: none Drug use: Reports: none Physical Exam - General Limitations: no limitations General appearance: alert, in no apparent distress - Head Head exam: atraumatic, normocephalic, normal inspection - Eye Eye exam: Present: normal appearance. Absent: scleral icterus, conjunctival injection - ENT ENT exam: mucous membranes dry - Neck Neck exam: Present: normal inspection, full ROM. Absent: tenderness, meningismus - Chest Chest inspection: Present: normal inspection, symmetric chest wall rise. Absent : tenderness, rash - Respiratory Respiratory exam: Present: normal lung sounds bilaterally. Absent: respiratory distress, wheezes - Cardiovascular Cardiovascular exam: Present: normal rhythm, tachycardia, normal heart sounds - Abdominal Exam Abdominal exam: Present: soft, Non-Tender. Absent: distention, guarding, rebound - Female Telecommunications Network Planner present during exam: Yes External Exam: Present: normal external exam. Absent: tenderness, swelling Speculum Exam: Present: cervical OS closed, vaginal bleeding (minimal bleeding noted, one clot in the vaginal vault, no brisk bleeding on exam) - Extremities Exam Extremities exam: Present: normal inspection, full ROM - Neurological Exam Neurological exam: Present: alert, oriented X3 - Psychiatric Psychiatric exam: Present: normal affect, normal mood - Skin Skin exam: Present: pallor Course Course Narrative: 36 year old female presenting with symptomatic anemia. Patient's hemoglobin 5.9 two days ago. We will obtain CBC, BMP, UA/Urine , and type and cross. We will also perform a pelvic exam. Patient is alert and oriented x 3 in the room. Tachycardic upon arrival but otherwise vital signs stable. We will also provide the patient with a liter of normal saline. Patient's disposition most likely admission but pending results. Patient agrees with this plan. - Reevaluation(s) Reevaluation #1: Patient's labs so anemia with 6.1 Hgb. Otherwise labs mostly unchanged from previous. Patient's pelvic exam completed and did not show any brisk bleeding on exam. Patient's physical exam otherwise WNL. We have ordered 2 units of blood and will admit the patient at this time for symptomatic anemia. Patient no longer tachycardic after fluids. Patient is alert and oriented x3 in the room with stable vital signs. I spoke with the hospitalist contractor buyer Dr. Sandoval who agrees to accept the patient at this time. Vital Signs Temperature 98.3 F 07/12/17 13:16 Pulse Rate 111 07/12/17 13:16 Respiratory Rate 16 07/12/17 13:16 Blood Pressure 132/83 07/12/17 13:16 O2 Sat by Pulse Oximetry 97 07/12/17 13:16 Temperature 98.6 F 07/13/17 16:00 Pulse Rate 86 07/13/17 16:00 Respiratory Rate 14 07/13/17 16:00 Blood Pressure 121/86 07/13/17 16:00 O2 Sat by Pulse Oximetry 98 07/13/17 16:00 Oxygen Delivery Oxygen Delivery Room Air Medical Decision Making - Lab Data Result diagrams: 07/13/17 01:19 07/13/17 01:19 Lab Results 07/12/17 07/12/17 07/12/17 Range/Units 13:22 13:22 13:29 WBC 4.2 L (4.3-11.1) K/mcL RBC 2.68 L (3.82-4.97) M/mcL Hgb 6.1 L (11.5-15.4) g/dL Hct 21.1 L (35.3-44.9) % MCV 78.7 L (83.0-100.0) fL MCH 22.8 L (28.0-33.3) pg MCHC 28.9 L (31.6-35.5) g/dL RDW 14.6 H (11.5-14.5) % Plt Count 258 (140-400) K/mcL MPV 10.4 (9.4-12.4) fL Immature Gran % 0.2 (0-4) % Seg Neutrophils % 68.7 % Lymphocytes % 23.6 % Monocytes % 6.1 % Eosinophils % 0.9 % Basophils % 0.5 % Neutrophils # 2.9 (1.6-8.9) K/mcL Lymphocytes # 1.0 (0.6-4.6) K/mcL Monocytes # 0.3 (0.0-1.3) K/mcL Eosinophils # 0.0 (0.0-0.6) K/mcL Basophils # 0.0 (0.0-0.2) K/mcL Nucleated RBCs/100 WBC (0) /100 WBC Platelet Estimate Normal (Normal) Hypochromasia Present A (Not Present) Anisocytosis 1+ A (Not Present) PT 18.9 H (9.4-12.1) Seconds INR 1.7 APTT 31.0 (26.0-36.0) Seconds Sodium 140 (136-145) mEq/L Potassium 4.0 (3.5-5.1) mEq/L Chloride 107 (98-107) mEq/L Carbon Dioxide 23 (23-29) mEq/L BUN 12 (6-20) mg/dL Creatinine 0.73 (0.60-1.20) mg/dL Est GFR ( Amer) > 60 (> 60) Est GFR (Non-Af Amer) > 60 (> 60) BUN/Creatinine Ratio 16 (6-26) Glucose 102 (70-105) mg/dL Calculated Osmolality 290 (280-300) Calcium 9.2 (8.6-10.3) mg/dL Magnesium (1.6-2.6) mg/dL Iron (50-170) mcg/dL % Saturation Transferrin (203-362) mg/dL Ferritin (10-120) ng/ml Total Bilirubin (0.3-1.0) mg/dL AST (13-39) Units/L ALT (7-52) Units/L Alkaline Phosphatase (34-104) Units/L Serum Total Protein (6.4-8.9) g/dL Albumin (3.5-5.7) g/dL Globulin (2.4-3.5) g/dL Albumin/Globulin Ratio (1.1-2.2) Triglycerides (< 150) mg/dL Cholesterol (< 200) mg/dL LDL Cholesterol, Calc (0-99) mg/dL VLDL Cholesterol, Calc (< 31) mg/dL HDL Cholesterol (40-59) mg/dL Cholesterol/HDL Ratio (0-4.9) Urine Color (Yellow) Urine Clarity (Clear) Urine pH (5.0-8.0) pH Units Ur Specific [place] (1.010-1.025) Urine Protein (Neg-Trace) mg/dL Urine Glucose (UA) (Normal) mg/dL Urine Ketones (Negative) mg/dL Urine Blood (Negative) Urine Nitrite (Negative) Urine Bilirubin (Negative) Urine Urobilinogen (Normal) mg/dL Ur Leukocyte Esterase (Negative) Urine Microscopic RBC (0-3) per hpf Urine Microscopic WBC (0-3) per hpf Ur Squamous Epith Cells (None-Few) per lpf Urine Bacteria (None-Few) per hpf Hyaline Casts (None-Few) per lpf Ur Culture Indicated? (NO) Urine Test (Negative) Blood Type Antibody Screen Antibody Identification Crossmatch MTS Gel Crossmatch 07/12/17 07/12/17 07/12/17 Range/Units 13:34 13:34 13:39 WBC (4.3-11.1) K/mcL RBC (3.82-4.97) M/mcL Hgb (11.5-15.4) g/dL Hct (35.3-44.9) % MCV (83.0-100.0) fL MCH (28.0-33.3) pg MCHC (31.6-35.5) g/dL RDW (11.5-14.5) % Plt Count (140-400) K/mcL MPV (9.4-12.4) fL Immature Gran % (0-4) % Seg Neutrophils % % Lymphocytes % % Monocytes % % Eosinophils % % Basophils % % Neutrophils # (1.6-8.9) K/mcL Lymphocytes # (0.6-4.6) K/mcL Monocytes # (0.0-1.3) K/mcL Eosinophils # (0.0-0.6) K/mcL Basophils # (0.0-0.2) K/mcL Nucleated RBCs/100 WBC (0) /100 WBC Platelet Estimate (Normal) Hypochromasia (Not Present) Anisocytosis (Not Present) PT (9.4-12.1) Seconds INR APTT (26.0-36.0) Seconds Sodium (136-145) mEq/L Potassium (3.5-5.1) mEq/L Chloride (98-107) mEq/L Carbon Dioxide (23-29) mEq/L BUN (6-20) mg/dL Creatinine (0.60-1.20) mg/dL Est GFR ( Amer) (> 60) Est GFR (Non-Af Amer) (> 60) BUN/Creatinine Ratio (6-26) Glucose (70-105) mg/dL Calculated Osmolality (280-300) Calcium (8.6-10.3) mg/dL Magnesium (1.6-2.6) mg/dL Iron (50-170) mcg/dL % Saturation Transferrin (203-362) mg/dL Ferritin (10-120) ng/ml Total Bilirubin (0.3-1.0) mg/dL AST (13-39) Units/L ALT (7-52) Units/L Alkaline Phosphatase (34-104) Units/L Serum Total Protein (6.4-8.9) g/dL Albumin (3.5-5.7) g/dL Globulin (2.4-3.5) g/dL Albumin/Globulin Ratio (1.1-2.2) Triglycerides (< 150) mg/dL Cholesterol (< 200) mg/dL LDL Cholesterol, Calc (0-99) mg/dL VLDL Cholesterol, Calc (< 31) mg/dL HDL Cholesterol (40-59) mg/dL Cholesterol/HDL Ratio (0-4.9) Urine Color Janice A (Yellow) Urine Clarity Turbid A (Clear) Urine pH 6.0 (5.0-8.0) pH Units Ur Specific [place] 1.028 H (1.010-1.025) Urine Protein 100 H (Neg-Trace) mg/dL Urine Glucose (UA) Normal (Normal) mg/dL Urine Ketones Trace H (Negative) mg/dL Urine Blood Large H (Negative) Urine Nitrite Negative (Negative) Urine Bilirubin Small H (Negative) Urine Urobilinogen Normal (Normal) mg/dL Ur Leukocyte Esterase Small H (Negative) Urine Microscopic RBC 50-100 H (0-3) per hpf Urine Microscopic WBC 30-50 H (0-3) per hpf Ur Squamous Epith Cells Many H (None-Few) per lpf Urine Bacteria Few (None-Few) per hpf Hyaline Casts Few (None-Few) per lpf Ur Culture Indicated? NO. (NO) Urine Test Negative (Negative) Blood Type A POSITIVE Antibody Screen POSITIVE Antibody Identification Anti-E Crossmatch See Detail MTS Gel Crossmatch See Detail 07/13/17 07/13/17 07/13/17 Range/Units 01:19 01:19 01:19 WBC 4.8 (4.3-11.1) K/mcL RBC 3.00 L (3.82-4.97) M/mcL Hgb 7.1 L (11.5-15.4) g/dL Hct 24.2 L (35.3-44.9) % MCV 81.7 L (83.0-100.0) fL MCH 23.7 L (28.0-33.3) pg MCHC 29.0 L (31.6-35.5) g/dL RDW 14.6 H (11.5-14.5) % Plt Count 248 (140-400) K/mcL MPV 11.2 (9.4-12.4) fL Immature Gran % 0.2 (0-4) % Seg Neutrophils % 55.8 % Lymphocytes % 36.9 % Monocytes % 5.0 % Eosinophils % 1.7 % Basophils % 0.4 % Neutrophils # 2.7 (1.6-8.9) K/mcL Lymphocytes # 1.8 (0.6-4.6) K/mcL Monocytes # 0.2 (0.0-1.3) K/mcL Eosinophils # 0.1 (0.0-0.6) K/mcL Basophils # 0.0 (0.0-0.2) K/mcL Nucleated RBCs/100 WBC 0.4 H (0) /100 WBC Platelet Estimate (Normal) Hypochromasia (Not Present) Anisocytosis (Not Present) PT 21.4 H (9.4-12.1) Seconds INR 2.0 APTT (26.0-36.0) Seconds Sodium 139 (136-145) mEq/L Potassium 3.8 (3.5-5.1) mEq/L Chloride 110 H (98-107) mEq/L Carbon Dioxide 21 L (23-29) mEq/L BUN 10 (6-20) mg/dL Creatinine 0.70 (0.60-1.20) mg/dL Est GFR ( Amer) > 60 (> 60) Est GFR (Non-Af Amer) > 60 (> 60) BUN/Creatinine Ratio 14 (6-26) Glucose 88 (70-105) mg/dL Calculated Osmolality 286 (280-300) Calcium 8.6 (8.6-10.3) mg/dL Magnesium 2.0 (1.6-2.6) mg/dL Iron (50-170) mcg/dL % Saturation Transferrin (203-362) mg/dL Ferritin (10-120) ng/ml Total Bilirubin 0.3 (0.3-1.0) mg/dL AST 13 (13-39) Units/L ALT 13 (7-52) Units/L Alkaline Phosphatase 58 (34-104) Units/L Serum Total Protein 6.5 (6.4-8.9) g/dL Albumin 4.0 (3.5-5.7) g/dL Globulin 2.5 (2.4-3.5) g/dL Albumin/Globulin Ratio 1.6 (1.1-2.2) Triglycerides 150 H (< 150) mg/dL Cholesterol 93 (< 200) mg/dL LDL Cholesterol, Calc 37 (0-99) mg/dL VLDL Cholesterol, Calc 30 (< 31) mg/dL HDL Cholesterol 26 L (40-59) mg/dL Cholesterol/HDL Ratio 3.6 (0-4.9) Urine Color (Yellow) Urine Clarity (Clear) Urine pH (5.0-8.0) pH Units Ur Specific [place] (1.010-1.025) Urine Protein (Neg-Trace) mg/dL Urine Glucose (UA) (Normal) mg/dL Urine Ketones (Negative) mg/dL Urine Blood (Negative) Urine Nitrite (Negative) Urine Bilirubin (Negative) Urine Urobilinogen (Normal) mg/dL Ur Leukocyte Esterase (Negative) Urine Microscopic RBC (0-3) per hpf Urine Microscopic WBC (0-3) per hpf Ur Squamous Epith Cells (None-Few) per lpf Urine Bacteria (None-Few) per hpf Hyaline Casts (None-Few) per lpf Ur Culture Indicated? (NO) Urine Test (Negative) Blood Type Antibody Screen Antibody Identification Crossmatch MTS Gel Crossmatch 07/13/17 07/13/17 07/13/17 Range/Units 04:09 08:33 08:33 WBC (4.3-11.1) K/mcL RBC (3.82-4.97) M/mcL Hgb (11.5-15.4) g/dL Hct (35.3-44.9) % MCV (83.0-100.0) fL MCH (28.0-33.3) pg MCHC (31.6-35.5) g/dL RDW (11.5-14.5) % Plt Count (140-400) K/mcL MPV (9.4-12.4) fL Immature Gran % (0-4) % Seg Neutrophils % % Lymphocytes % % Monocytes % % Eosinophils % % Basophils % % Neutrophils # (1.6-8.9) K/mcL Lymphocytes # (0.6-4.6) K/mcL Monocytes # (0.0-1.3) K/mcL Eosinophils # (0.0-0.6) K/mcL Basophils # (0.0-0.2) K/mcL Nucleated RBCs/100 WBC (0) /100 WBC Platelet Estimate (Normal) Hypochromasia (Not Present) Anisocytosis (Not Present) PT 21.5 H (9.4-12.1) Seconds INR 2.0 APTT (26.0-36.0) Seconds Sodium (136-145) mEq/L Potassium (3.5-5.1) mEq/L Chloride (98-107) mEq/L Carbon Dioxide (23-29) mEq/L BUN (6-20) mg/dL Creatinine (0.60-1.20) mg/dL Est GFR ( Amer) (> 60) Est GFR (Non-Af Amer) (> 60) BUN/Creatinine Ratio (6-26) Glucose (70-105) mg/dL Calculated Osmolality (280-300) Calcium (8.6-10.3) mg/dL Magnesium (1.6-2.6) mg/dL Iron < 10 L (50-170) mcg/dL % Saturation TNP Transferrin 358 (203-362) mg/dL Ferritin < 8 L (10-120) ng/ml Total Bilirubin (0.3-1.0) mg/dL AST (13-39) Units/L ALT (7-52) Units/L Alkaline Phosphatase (34-104) Units/L Serum Total Protein (6.4-8.9) g/dL Albumin (3.5-5.7) g/dL Globulin (2.4-3.5) g/dL Albumin/Globulin Ratio (1.1-2.2) Triglycerides (< 150) mg/dL Cholesterol (< 200) mg/dL LDL Cholesterol, Calc (0-99) mg/dL VLDL Cholesterol, Calc (< 31) mg/dL HDL Cholesterol (40-59) mg/dL Cholesterol/HDL Ratio (0-4.9) Urine Color (Yellow) Urine Clarity (Clear) Urine pH (5.0-8.0) pH Units Ur Specific [place] (1.010-1.025) Urine Protein (Neg-Trace) mg/dL Urine Glucose (UA) (Normal) mg/dL Urine Ketones (Negative) mg/dL Urine Blood (Negative) Urine Nitrite (Negative) Urine Bilirubin (Negative) Urine Urobilinogen (Normal) mg/dL Ur Leukocyte Esterase (Negative) Urine Microscopic RBC (0-3) per hpf Urine Microscopic WBC (0-3) per hpf Ur Squamous Epith Cells (None-Few) per lpf Urine Bacteria (None-Few) per hpf Hyaline Casts (None-Few) per lpf Ur Culture Indicated? (NO) Urine Test (Negative) Blood Type Antibody Screen Antibody Identification Crossmatch MTS Gel Crossmatch Critical Care Time Critical Care Time: Yes Total Critical Care Time: 60 Attestation: The high probability of a clinically significant, sudden or life threatening deterioration of the [CV] system(s) required my full and direct attention, intervention and personal management. The aggregate critical care time was [60] minutes. This time is in addition to time spent performing reported procedures but includes the following: [x] Data Review and interpretation [x] Patient assessment and monitoring of vital signs [x] Documentation [x] Medication orders and management Attestation Statement - Attestation Attestation: I examined this patient and my medical decision-making was reviewed with the Resident Physician, Dr. Perry. I agree with the documented findings, disposition and treatment plan as described except to the extent set forth below. Patient is a 36-year-old white female with significant past medical history concerning for prior CVA, multiple blood clots and has been worked up extensively for coagulopathy. No abnormal testing has been found and patient was transitioned from Xarelto to Coumadin due to heavy vaginal bleeding. Patient states over the past once 2 months she has noticed gradually worsening generalized weakness, shortness of breath especially with exertion and has been having intermittent vaginal bleeding. Currently patient denies any heavy vaginal bleeding over the past 24-36 hours states just spotting at this time. Patient has not made any recent adjustments in her Coumadin dose. Patient was contacted for abnormal hemoglobin that was reportedly 5.9 and told to come to the emergency department. I agree with patient's physical exam findings as documented. Patient arrives tachycardic but with a stable blood pressure and in no acute respiratory distress. Patient's laboratory evaluation was repeated here in the ED and she was started on IV fluids and had 2 large bore peripheral IVs established on arrival placed on cardiac monitoring and pulse ox. Patient is in no acute distress on arrival , appears pale but not diaphoretic. Patient's repeat hemoglobin was 6.1. Pelvic exam does not show any active bleeding from the cervix at this time. Patient consented to blood transfusion type and screen for 2 units was ordered. Patient received IV fluids on arrival with improvement in her vital signs. Patient will be admitted for blood loss anemia. Currently her Coumadin level is subtherapeutic so she will not require any current vitamin K or FFP, Coumadin has been held. Patient's hemodynamically improved and will be admitted for blood transfusion and further evaluation and management.
[2017-07-12 13:47] LABS: Color,Urine Amber (Yellow)
[2017-07-12 13:55] LABS: RBC,Urine 50-100 per hpf (0-3)
[2017-07-12 13:57] LABS: Basophils % 0.5 %
[2017-07-12 13:58] LABS: Eosinophils % 0.9 %; Hematocrit 21.1 % (35.3-44.9); Immature Granulocytes % 0.2 % (0-4); Lymphocytes % 23.6 %; Mean Corpuscular HGB Conc 28.9 g/dL (31.6-35.5); Mean Corpuscular Hemoglobin 22.8 pg (28.0-33.3); Mean Corpuscular Volume 78.7 fL (83.0-100.0); Mean Platelet Volume 10.4 fL (9.4-12.4); Monocytes # 0.3 K/mcL (0.0-1.3); Monocytes % 6.1 %; Neutrophils # 2.9 K/mcL (1.6-8.9); Platelet Count 258 K/mcL (140-400); Red Blood Count 2.68 M/mcL (3.82-4.97); Red Cell Distribution Width 14.6 % (11.5-14.5); Segmented Neutrophils % 68.7 %
[2017-07-12 13:59] LABS: Hemoglobin 6.1 g/dL (11.5-15.4)
[2017-07-12 14:00] LABS: INR 1.7; Prothrombin Time 18.9 Seconds (9.4-12.1)
[2017-07-12 14:17] LABS: BUN/Creatinine Ratio 16 (6-26); Blood Urea Nitrogen 12 mg/dL (6-20); Calcium 9.2 mg/dL (8.6-10.3); Carbon Dioxide 23 mEq/L (23-29); Chloride 107 mEq/L (98-107); Glucose 102 mg/dL (70-105); Osmolality,Calculated 290 (280-300); Sodium 140 mEq/L (136-145); eGFR For African Americans > 60 (> 60); eGFR For Non-African Americans > 60 (> 60)
[2017-07-12 14:27] LABS: Anisocytosis 1+ (Not Present); Hypochromasia Present (Not Present); Platelet Estimate Normal (Normal)
[2017-07-12] MEDS ORDERED: 0.9 % Sodium Chloride 250 ML ONE (16:12)
--- NOTE | 2017-07-12 17:05 | Internal Med History&Physical ---
Date of Encounter: 07/12/17 Time of Encounter: 17:00 Assessment and Plan (1) Anemia Current visit: Yes Status: Chronic Anemia with low MCV will continue iron supplement Qualifiers: Anemia type: unspecified type Qualified Code(s): D64.9 - Anemia, unspecified (2) Vaginal bleeding Current visit: Yes Status: Chronic Patient with variable vaginal bleeding sometimes heavy sometimes mild with need outpatient CLEAN ROOM OPERATOR evaluation (3) HTN (hypertension) Current visit: No Status: Chronic Chronic and well controlled Qualifiers: Hypertension type: essential hypertension Qualified Code(s): I10 - Essential (primary) hypertension (4) Hypercoagulable state Current visit: No Status: Acute Patient has been evaluated at [facility] and also by oncology here no finding to explain hypercoagulable state (5) JESUS (iron deficiency anemia) Current visit: No Status: Chronic Chronic probably due to heavy menstrual period with chronic blood loss Qualifiers: Iron deficiency anemia type: chronic blood loss Qualified Code(s): D50.0 - Iron deficiency anemia secondary to blood loss (chronic) (6) Morbid obesity with BMI of 40.0-44.9, adult Current visit: No Status: Chronic (7) Tobacco abuse Current visit: No Status: Chronic Internal Medicine - H&P: HPI Chief complaint: severe anemia Admitted From: Emergency Dept Plans for Post Hospital Care: Home History of present illness: Ms. Elliott is a 36 year old female Patient with history of atrial fibrillation, CVA in the past received TPA with complete recovery, multiple DVT and pulmonary embolism, on Coumadin, hypertension, COPD and obstructive sleep apnea, anxiety and depression and smoking history. Patient has been having heavyb menstruation has been ongoing on and off about 3 months on and off sometimes heavy sometime is slight currently on menstruation thatis light . patient has been feeling weak and tired for about 2-3 weeks also with some muscle cramps she has had multiple blood transfusion in the past patient came into the emergency room for further evaluation hemoglobin was 6.1 with low MCV patient is being transfused and will be admitted for observation denies any chest pain no GI bleed. Patient has seen oncologist in the past had been worked up for hypercoagulable state also been to [facility] with no findings to explain hypercoagulability state. She also seen CLEAN ROOM OPERATOR in the past year Past Med Surg Social Fam HX - Past Medical History Medical history: atrial fibrillation, CVA, DVT, hypertension, pulmonary embolus , TIA, other Psychiatric history: anxiety, depression - Past Surgical History Surgical History: other ( x 2) - Social History Smoking Status: Current some day smoker Smokeless Tobacco Status: No Alcohol use: none Drug use: none - Family History Maternal Grandfather Living Status: Hx Family Cardiac Disorders: Yes ([place]) Father Hx Family Cardiac Disorders: Yes ([place]) Internal Medicine - H&P: Meds Aspirin 81 mg PO DAILY #30 tab 01/10/17 [Rx] Warfarin [Coumadin] 4 mg PO DAILY #30 tablet 01/10/17 [Rx] Atorvastatin [Lipitor] 10 mg PO HS 07/12/17 [History] Metoprolol Succinate [Toprol Xl] 25 mg PO DAILY 07/12/17 [History] 3 Allergy/AdvReac Type Severity Reaction Status Date / Time Sulfa (Sulfonamide Allergy BAD RASH, Verified 07/12/17 13:50 Antibiotics) THROAT SWOLLEN All Systems PM: A 10-system review of systems was performed and is negative for pertinent findings except as documented above in the HPI. - Constitutional Constitutional: fatigue, lethargy, weakness - EENT Eyes: no change in vision, no discharge, no pain, no photophobia Ears: no ear discharge, no ear pain, no tinnitus Nose, mouth and throat: no dysphagia, no nasal discharge, no neck pain, no sore throat - Cardiovascular Cardiovascular ROS IM: no chest pain, no diaphoresis, no dyspnea, no lightheadedness, no palpitations, no syncope - Respiratory Respiratory: no cough, no dyspnea, no wheezing, no excessive phlegm production - Gastrointestinal Gastrointestinal: no abdominal pain, no diarrhea, no hematemesis, no hematochezia, no melena, no nausea, no vomiting - Genitourinary Genitourinary: no change in urinary stream, no dysuria, no flank pain, no hematuria Menstruation: menses variable - Constitutional Vitals: Temp Pulse Resp BP Pulse Ox 98.2 F 92 19 137/77 98 07/12/17 16:37 07/12/17 16:37 07/12/17 16:37 07/12/17 16:37 07/12/17 15:24 - Eye Eye exam: Present: PERRL, conjuntiva pink, sclera anicteric Pupils: Present: PERRL - Neck Neck exam general surgery: Present: supple, trachea midline. Absent: lymphadenopathy - Respiratory Respiratory exam: Present: CTAB. Absent: accessory muscle use, rales, rhonchi, wheezes - Cardiovascular Cardiovascular exam: Present: RRR, +S1, +S2. Absent: diastolic murmur, gallop, rubs, systolic murmur - GI/Abdominal GI/Abdominal exam: Present: normal bowel sounds, soft, no peritoneal signs. Absent: distended, tenderness - Extremities Exam Extremities exam: Present: warm, radial pulses palpable and symmetrical. Absent : calf tenderness, cyanotic, pedal edema Internal Med - H&P Results - Labs CBC & Chem 7: 07/12/17 13:22 07/12/17 13:22 Labs: Short CBC 07/12/17 Range/Units 13:22 WBC 4.2 L (4.3-11.1) K/mcL Hgb 6.1 L (11.5-15.4) g/dL Hct 21.1 L (35.3-44.9) % Plt Count 258 (140-400) K/mcL Neutrophils # 2.9 (1.6-8.9) K/mcL BMP 07/12/17 13:22 Sodium 140 Potassium 4.0 Chloride 107 Carbon Dioxide 23 BUN 12 Creatinine 0.73 Glucose 102 Calcium 9.2 Urine 07/12/17 Range/Units 13:34 Urine Color Janice A (Yellow) Urine Clarity Turbid A (Clear) Urine pH 6.0 (5.0-8.0) pH Units Ur Specific [place] 1.028 H (1.010-1.025) Urine Protein 100 H (Neg-Trace) mg/dL Urine Glucose (UA) Normal (Normal) mg/dL
[2017-07-12] MEDS ORDERED: Naloxone 0.4 MG/ML INJ IVP PRN (17:08)
[2017-07-12] MEDS ORDERED: Acetaminophen 325 MG TABLET PO PRN (17:08)
--- NOTE | 2017-07-12 17:17 | Emergency Department Note ---
Disposition Clinical Impression: Vaginal bleeding Anemia Qualifiers: Anemia type: unspecified type Qualified Code(s): D64.9 - Anemia, unspecified Disposition: Admitted As Inpatient Condition: Good Referrals: Nathan Mcguire MD [Primary Care Provider] - Forms: ED Satisfaction Letter General Adult HPI - General Chief complaint: ED Recheck/Abnormal Lab/Rx Stated complaint: Low hemoglobin Time Seen by Provider: 07/12/17 13:22 Source: patient Mode of arrival: ambulatory Limitations: no limitations - History of Present Illness Pain Scale: 9 - Related Data Home Medications Medication Instructions Recorded Confirmed Atorvastatin [Lipitor] 10 mg PO HS 07/12/17 07/12/17 Metoprolol Succinate [Toprol Xl] 25 mg PO DAILY 07/12/17 07/12/17 Previous Rx's Medication Instructions Recorded Aspirin 81 mg PO DAILY #30 tab 01/10/17 Warfarin [Coumadin] 4 mg PO DAILY #30 tablet 01/10/17 Allergies Allergy/AdvReac Type Severity Reaction Status Date / Time Sulfa (Sulfonamide Allergy BAD RASH, Verified 07/12/17 13:50 Antibiotics) THROAT SWOLLEN Genitourinary: Reports: abnormal menses Musculoskeletal: Reports: myalgia Neurological: Reports: weakness Past Medical History - Past Medical History Medical history: Reports: atrial fibrillation, CVA, DVT, hypertension, pulmonary embolus, TIA, other Surgical history: Reports: other ( x 2) Psychiatric history: Reports: anxiety, depression REIMBURSEMENT LIAISON history: Reports: no REIMBURSEMENT LIAISON history - Social History Smoking Status: Current some day smoker Smokeless Tobacco Status: No Alcohol use: Reports: none Drug use: Reports: none Physical Exam - General Limitations: no limitations General appearance: alert, in no apparent distress Course Vital Signs Temperature 98.3 F 07/12/17 13:16 Pulse Rate 111 07/12/17 13:16 Respiratory Rate 16 07/12/17 13:16 Blood Pressure 132/83 07/12/17 13:16 O2 Sat by Pulse Oximetry 97 07/12/17 13:16 Temperature 98.2 F 07/12/17 16:37 Pulse Rate 92 07/12/17 16:37 Respiratory Rate 19 07/12/17 16:37 Blood Pressure 137/77 07/12/17 16:37 O2 Sat by Pulse Oximetry 98 07/12/17 15:24 Oxygen Delivery Oxygen Delivery Room Air Medical Decision Making - Lab Data Result diagrams: 07/12/17 13:22 07/12/17 13:22 Lab Results 07/12/17 07/12/17 07/12/17 Range/Units 13:22 13:22 13:29 WBC 4.2 L (4.3-11.1) K/mcL RBC 2.68 L (3.82-4.97) M/mcL Hgb 6.1 L (11.5-15.4) g/dL Hct 21.1 L (35.3-44.9) % MCV 78.7 L (83.0-100.0) fL MCH 22.8 L (28.0-33.3) pg MCHC 28.9 L (31.6-35.5) g/dL RDW 14.6 H (11.5-14.5) % Plt Count 258 (140-400) K/mcL MPV 10.4 (9.4-12.4) fL Immature Gran % 0.2 (0-4) % Seg Neutrophils % 68.7 % Lymphocytes % 23.6 % Monocytes % 6.1 % Eosinophils % 0.9 % Basophils % 0.5 % Neutrophils # 2.9 (1.6-8.9) K/mcL Lymphocytes # 1.0 (0.6-4.6) K/mcL Monocytes # 0.3 (0.0-1.3) K/mcL Eosinophils # 0.0 (0.0-0.6) K/mcL Basophils # 0.0 (0.0-0.2) K/mcL Platelet Estimate Normal (Normal) Hypochromasia Present A (Not Present) Anisocytosis 1+ A (Not Present) PT 18.9 H (9.4-12.1) Seconds INR 1.7 APTT 31.0 (26.0-36.0) Seconds Sodium 140 (136-145) mEq/L Potassium 4.0 (3.5-5.1) mEq/L Chloride 107 (98-107) mEq/L Carbon Dioxide 23 (23-29) mEq/L BUN 12 (6-20) mg/dL Creatinine 0.73 (0.60-1.20) mg/dL Est GFR ( Amer) > 60 (> 60) Est GFR (Non-Af Amer) > 60 (> 60) BUN/Creatinine Ratio 16 (6-26) Glucose 102 (70-105) mg/dL Calculated Osmolality 290 (280-300) Calcium 9.2 (8.6-10.3) mg/dL Urine Color (Yellow) Urine Clarity (Clear) Urine pH (5.0-8.0) pH Units Ur Specific [place] (1.010-1.025) Urine Protein (Neg-Trace) mg/dL Urine Glucose (UA) (Normal) mg/dL Urine Ketones (Negative) mg/dL Urine Blood (Negative) Urine Nitrite (Negative) Urine Bilirubin (Negative) Urine Urobilinogen (Normal) mg/dL Ur Leukocyte Esterase (Negative) Urine Microscopic RBC (0-3) per hpf Urine Microscopic WBC (0-3) per hpf Ur Squamous Epith Cells (None-Few) per lpf Urine Bacteria (None-Few) per hpf Hyaline Casts (None-Few) per lpf Ur Culture Indicated? (NO) Urine Test (Negative) Blood Type Antibody Screen Antibody Identification Crossmatch MTS Gel Crossmatch 07/12/17 07/12/17 07/12/17 Range/Units 13:34 13:34 13:39 WBC (4.3-11.1) K/mcL RBC (3.82-4.97) M/mcL Hgb (11.5-15.4) g/dL Hct (35.3-44.9) % MCV (83.0-100.0) fL MCH (28.0-33.3) pg MCHC (31.6-35.5) g/dL RDW (11.5-14.5) % Plt Count (140-400) K/mcL MPV (9.4-12.4) fL Immature Gran % (0-4) % Seg Neutrophils % % Lymphocytes % % Monocytes % % Eosinophils % % Basophils % % Neutrophils # (1.6-8.9) K/mcL Lymphocytes # (0.6-4.6) K/mcL Monocytes # (0.0-1.3) K/mcL Eosinophils # (0.0-0.6) K/mcL Basophils # (0.0-0.2) K/mcL Platelet Estimate (Normal) Hypochromasia (Not Present) Anisocytosis (Not Present) PT (9.4-12.1) Seconds INR APTT (26.0-36.0) Seconds Sodium (136-145) mEq/L Potassium (3.5-5.1) mEq/L Chloride (98-107) mEq/L Carbon Dioxide (23-29) mEq/L BUN (6-20) mg/dL Creatinine (0.60-1.20) mg/dL Est GFR ( Amer) (> 60) Est GFR (Non-Af Amer) (> 60) BUN/Creatinine Ratio (6-26) Glucose (70-105) mg/dL Calculated Osmolality (280-300) Calcium (8.6-10.3) mg/dL Urine Color Janice A (Yellow) Urine Clarity Turbid A (Clear) Urine pH 6.0 (5.0-8.0) pH Units Ur Specific [place] 1.028 H (1.010-1.025) Urine Protein 100 H (Neg-Trace) mg/dL Urine Glucose (UA) Normal (Normal) mg/dL Urine Ketones Trace H (Negative) mg/dL Urine Blood Large H (Negative) Urine Nitrite Negative (Negative) Urine Bilirubin Small H (Negative) Urine Urobilinogen Normal (Normal) mg/dL Ur Leukocyte Esterase Small H (Negative) Urine Microscopic RBC 50-100 H (0-3) per hpf Urine Microscopic WBC 30-50 H (0-3) per hpf Ur Squamous Epith Cells Many H (None-Few) per lpf Urine Bacteria Few (None-Few) per hpf Hyaline Casts Few (None-Few) per lpf Ur Culture Indicated? NO. (NO) Urine Test Negative (Negative) Blood Type A POSITIVE Antibody Screen POSITIVE Antibody Identification Anti-E Crossmatch See Detail MTS Gel Crossmatch See Detail
[2017-07-12] MEDS: 0.9 % Sodium Chloride 1,000 ML IVC SCH (17:32)
[2017-07-12] MEDS ORDERED: 0.9 % Sodium Chloride 500 ML ONE (18:34)
[2017-07-12] MEDS: traMADol 50 MG TABLET PO PRN (20:19)
[2017-07-12] MEDS: Nicotine 14 MG PATCH.TD24 TD SCH (20:49)
[2017-07-13] MEDS ORDERED: Furosemide 20 MG/2 ML VIAL IVP ONE (00:49)
[2017-07-13 01:54] LABS: Hematocrit 24.2 % (35.3-44.9); Hemoglobin 7.1 g/dL (11.5-15.4)
[2017-07-13 01:57] LABS: Prothrombin Time 21.4 Seconds (9.4-12.1)
[2017-07-13 02:12] LABS: Alanine Aminotransferase 13 Units/L (7-52); Albumin/Globulin Ratio 1.6 (1.1-2.2); Alkaline Phosphatase 58 Units/L (34-104); Aspartate Amino Transferase 13 Units/L (13-39); BUN/Creatinine Ratio 14 (6-26); Bilirubin,Total 0.3 mg/dL (0.3-1.0); Blood Urea Nitrogen 10 mg/dL (6-20); Calcium 8.6 mg/dL (8.6-10.3); Carbon Dioxide 21 mEq/L (23-29); Chloride 110 mEq/L (98-107); Chol/HDL Ratio 3.6 (0-4.9); Cholesterol 93 mg/dL (< 200); Globulin 2.5 g/dL (2.4-3.5); Glucose 88 mg/dL (70-105); HDL Cholesterol 26 mg/dL (40-59); LDL Cholesterol,Calculated 37 mg/dL (0-99); Osmolality,Calculated 286 (280-300); Potassium 3.8 mEq/L (3.5-5.1); Sodium 139 mEq/L (136-145); Total Protein 6.5 g/dL (6.4-8.9); Triglycerides 150 mg/dL (< 150); eGFR For African Americans > 60 (> 60); eGFR For Non-African Americans > 60 (> 60)
[2017-07-13 04:59] LABS: Prothrombin Time 21.5 Seconds (9.4-12.1)
[2017-07-13 08:05] LABS: Basophils % 0.4 %; Eosinophils # 0.1 K/mcL (0.0-0.6); Eosinophils % 1.7 %; Immature Granulocytes % 0.2 % (0-4); Lymphocytes # 1.8 K/mcL (0.6-4.6); Lymphocytes % 36.9 %; Mean Corpuscular Hemoglobin 23.7 pg (28.0-33.3); Mean Corpuscular Volume 81.7 fL (83.0-100.0); Mean Platelet Volume 11.2 fL (9.4-12.4); Monocytes # 0.2 K/mcL (0.0-1.3); Neutrophils # 2.7 K/mcL (1.6-8.9); Nucleated Red Blood Cells 0.4 /100 WBC (0); Platelet Count 248 K/mcL (140-400); Red Cell Distribution Width 14.6 % (11.5-14.5); Segmented Neutrophils % 55.8 %
[2017-07-13] MEDS: 0.9 % Sodium Chloride 1,000 ML IVC SCH (08:11)
[2017-07-13] MEDS: Nicotine 14 MG PATCH.TD24 TD SCH (08:15)
[2017-07-13] MEDS: Metoprolol XL (24 HR) Succ 25 MG TAB.ER.24H PO SCH (08:15)
[2017-07-13] MEDS ORDERED: *HR* Warfarin 4 MG TABLET PO SCH (09:00)
[2017-07-13] MEDS: Aspirin 81 MG TAB.CHEW PO SCH (09:35)
[2017-07-13 09:36] LABS: Iron < 10 mcg/dL (50-170); Transferrin 358 mg/dL (203-362)
--- NOTE | 2017-07-13 10:39 | Gastroenterology Consult Note ---
<Pura Timmons - Last Filed: 07/13/17 10:36> Date of Encounter: 07/13/17 Time of Encounter: 09:15 - Assessment and plan (1) Anemia Current Visit: Yes Status: Chronic Assessment and plan: Pt has chronic anemia. She reports heavy vaginal bleeding with clots, denies any GI symptoms. Spoke with Dr Pratt who recommends MEDICAL ASSISTANT INSTRUCTOR consult for evaluation. No indication for endoscopy at this time. Spoke with Dr Galloway regarding recommendations. Qualifiers: Anemia type: unspecified type Qualified Code(s): D64.9 - Anemia, unspecified (2) Vaginal bleeding Current Visit: Yes Status: Chronic Assessment and plan: Likely cause for anemia, needs MEDICAL ASSISTANT INSTRUCTOR consultation. - Time Spent With Patient Total time spent is greater than 50% in coordination of care (as documented) at patient's floor/unit and/or counseling patient: GI History of Present Illness - Data of Consult Patient: new to practice Consult date: 07/13/17 Requesting Physician: Eliane Galloway MD - Consult Narrative Reason for consult: anemia History of present illness: Ms. Elliott is a 36 year old female patient with history of atrial fibrillation , HTN, COPD, LUCIUS, depression, tobacco abuse who had a CVA in 07/07, received TPA with complete recovery, and has a history of multiple DVT and pulmonary embolism. She had hypercoagulable workup at [facility] which was negative, and she follows with oncology and coumadin clinic. She presents with anemia. She states she has had anemia for the past 5 years. She also reports heavy menstrual periods for several years but much worse the past 3 months. She reports daily heavy bleeding, occasionally passing large clots. She states bleeding is light at this time. She has not seen an backfiller in over a year and denies any previous procedures for heavey uterine bleeding. She has had a Mirena IUD for the past 2 years for control. She admits to 2-3 week history of fatigue, SOA, and muscle cramps. She denies GERD or abdominal pain, she denies bloody or tarry stools, she denies diarrhea. She admits to constipation and states she has 1 BM per week. She reports being transfused 3 times in the past. In ER hemoglobin was 6.1 with low MCV, she was transfused 2 units PRBCs and Hgb is 7.1 this am. INR is 2.0. She denies any chest pain. She reports her grandfather had colon cancer. Colonoscopy: denies EGD: denies NSAIDS/ASA: asa 81 mg Anticoagulants: coumadin Past Med Surg Social Fam HX - Past Medical History Medical history: atrial fibrillation, CVA, DVT, hypertension, pulmonary embolus , TIA, other Psychiatric history: anxiety, depression - Past Surgical History Surgical History: other - Social History Smoking Status: Former smoker Smokeless Tobacco Status: No Alcohol use: none Drug use: none - Family History Maternal Grandfather Living Status: Hx Family Cardiac Disorders: Yes (CT) Father Hx Family Cardiac Disorders: Yes (CT) Review of Systems: GI: as per [facility] GENERAL: denies fever, has some chills EYES: denies yellow discoloration ENT: denies pain with swallowing or difficulty swallowing CARDIO: denies chest pain, palpitations RESP: Shortness of breath with exertion : denies change in color of urine NEURO: increased weakness HEME: Denies any bruising MS: denies joint pain, joint swelling or back pain. DERM: denies rash or itching PSYCH: history of anxiety or depression - Constitutional Vitals: Temp Pulse Resp BP Pulse Ox 97.9 F 89 16 112/50 97 07/13/17 06:54 07/13/17 06:54 07/13/17 06:54 07/13/17 08:24 07/13/17 06:54 Exam: CONSTITUTIONAL:~alert, no acute distress.~HEAD:~normocephalic.~EYES:~no jaundice.~NECK:~no obvious swelling.~HEART:~regular rate and rhythm, no murmurs. ~LUNGS:~bilateral fair air entry.~ABDOMEN:~non distended, soft, non tender, no masses palpable, no organomegaly. lower abdominal scar well healed.~RECTAL EXAM: ~Deferred.~EXTREMITIES:~no clubbing, cyanosis or edema.~SKIN:~pallor noted, no stigmata of chronic liver disease.~NEUROLOGIC:~no obvious focal defect.~~~~ Results - Labs CBC & Chem 7: 07/13/17 01:19 07/13/17 01:19 Labs: Last Result Calcium 8.6 mg/dL (8.6-10.3) 07/13/17 01:19 Iron < 10 mcg/dL (50-170) L 07/13/17 08:33 % Saturation TNP 07/13/17 08:33 Transferrin 358 mg/dL (203-362) 07/13/17 08:33 Ferritin < 8 ng/ml (10-120) L 07/13/17 08:33 Triglycerides 150 mg/dL (< 150) H 07/13/17 01:19 Entire Visit Hgb 7.1 g/dL (11.5-15.4) L 07/13/17 01:19 Hct 24.2 % (35.3-44.9) L 07/13/17 01:19 PT 21.5 Seconds (9.4-12.1) H 07/13/17 04:09 Ferritin < 8 ng/ml (10-120) L 07/13/17 08:33 Total Bilirubin 0.3 mg/dL (0.3-1.0) 07/13/17 01:19 AST 13 Units/L (13-39) 07/13/17 01:19 ALT 13 Units/L (7-52) 07/13/17 01:19 - ABG ABG results: PT/INR, D-dimer PT 21.5 Seconds (9.4-12.1) H 07/13/17 04:09 Consult Discharge Plan - Plan Referrals: Nathan Mcguire MD [Primary Care Provider] - <[email or web address] - Last Filed: 07/13/17 19:00> Date of Encounter: 07/13/17 Time of Encounter: 18:00 - Time Spent With Patient Total time spent is greater than 50% in coordination of care (as documented) at patient's floor/unit and/or counseling patient: GI History of Present Illness - Data of Consult Requesting Physician: Eliane Galloway MD - Consult Narrative History of present illness: Ms. Elliott is a 36 year old female - Constitutional Vitals: Temp Pulse Resp BP Pulse Ox 97.6 F 86 14 102/68 96 07/13/17 16:14 07/13/17 16:14 07/13/17 16:14 07/13/17 16:14 07/13/17 16:14 Results - Labs CBC & Chem 7: 07/13/17 01:19 07/13/17 01:19 Labs: Last Result Calcium 8.6 mg/dL (8.6-10.3) 07/13/17 01:19 Iron < 10 mcg/dL (50-170) L 07/13/17 08:33 % Saturation TNP 07/13/17 08:33 Transferrin 358 mg/dL (203-362) 07/13/17 08:33 Ferritin < 8 ng/ml (10-120) L 07/13/17 08:33 Triglycerides 150 mg/dL (< 150) H 07/13/17 01:19 Entire Visit Hgb 7.1 g/dL (11.5-15.4) L 07/13/17 01:19 Hct 24.2 % (35.3-44.9) L 07/13/17 01:19 PT 21.5 Seconds (9.4-12.1) H 07/13/17 04:09 Ferritin < 8 ng/ml (10-120) L 07/13/17 08:33 Total Bilirubin 0.3 mg/dL (0.3-1.0) 07/13/17 01:19 AST 13 Units/L (13-39) 07/13/17 01:19 ALT 13 Units/L (7-52) 07/13/17 01:19 - ABG ABG results: PT/INR, D-dimer PT 21.5 Seconds (9.4-12.1) H 07/13/17 04:09 - Attending Attestation I have personally performed a face to face evaluation on this patient. I have reviewed and agree with the care plan. History and Exam by me shows:
[2017-07-13] MEDS ORDERED: 0.9 % Sodium Chloride 250 ML ONE ×2 (11:38→15:52)
--- NOTE | 2017-07-13 15:13 | Internal Med Progress Note ---
Date of Encounter: 07/13/17 Time of Encounter: 09:10 - Assessment and plan (1) Menorrhagia Current Visit: Yes Status: Acute Assessment and plan: Acute on chronic. Patient reports having followed with gynecology, received Mirena which controlled her bleeding for a while, recurrence now. Baseline hemoglobin noted to be around 11 in January 2017, now admitted with 5.9. We will consult gynecology for further workup. Monitor hemoglobin closely and transfuse as needed. Qualifiers: Menorrahagia type: with irregular cycle Qualified Code(s): N92.1 - Excessive and frequent menstruation with irregular cycle (2) Anemia Current Visit: Yes Status: Chronic Assessment and plan: Serum iron profile shows very low iron reserve, with low ferritin, high transferrin, consistent with iron deficiency anemia. Serum vitamin B12 and folate levels normal in January 2017. Patient followed with hematology in the past, received IV iron therapy as she did not respond to oral ferrous sulfate supplements. Received 2 units PRBC, hemoglobin improved to 7.1. Will transfuse 2 more units PRBC. Start IV iron therapy. Patient is also noted to be on anticoagulation with Coumadin and aspirin, which will be continued for now due to significant history of stroke and VTE. Gastroenterology consulted, no indication for GI workup due to absence of symptoms and signs. Recommend WILD LIFE PHOTOGRAPHER evaluation. Qualifiers: Anemia type: iron deficiency Iron deficiency anemia type: chronic blood loss Qualified Code(s): D50.0 - Iron deficiency anemia secondary to blood loss (chronic) (3) VTE (venous thromboembolism) Current Visit: Yes Status: Chronic Assessment and plan: Hypercoagulability workup was completed by hematology, with no definitive diagnosis. Continue anticoagulation with Coumadin, INR noted to be 2. (4) CVA (cerebral vascular accident) Current Visit: Yes Status: Chronic Assessment and plan: Continue aspirin and Coumadin. Qualifiers: CVA mechanism: thrombosis Precerebral and cerebral artery: unspecified cerebral artery Qualified Code(s): I63.30 - Cerebral infarction due to thrombosis of unspecified cerebral artery (5) Hypercoagulable state Current Visit: Yes Status: Chronic Assessment and plan: Continue anticoagulation as above. (6) HTN (hypertension) Current Visit: Yes Status: Chronic Assessment and plan: Blood pressure well controlled. Continue beta bushra. Qualifiers: Hypertension type: essential hypertension Qualified Code(s): I10 - Essential (primary) hypertension (7) Morbid obesity with BMI of 40.0-44.9, adult Current Visit: Yes Status: Chronic (8) Tobacco abuse Current Visit: Yes Status: Chronic - Subjective Interval history: Feels better; improved dyspnea, fatigue, dizziness; continues to have menorrhagia; no hematochezia, melena, abdominal pain; - Constitutional Vitals: Temp Pulse Resp BP Pulse Ox 98.2 F 88 12 121/78 98 07/13/17 14:53 07/13/17 14:53 07/13/17 14:53 07/13/17 14:53 07/13/17 14:53 General appearance: Present: A&O X 3, morbidly obese, answers questions appropriately - Respiratory Respiratory exam: Present: CTAB. Absent: accessory muscle use, rales, rhonchi, wheezes - Cardiovascular Cardiovascular exam: Present: RRR, +S1, +S2. Absent: diastolic murmur, gallop, rubs, systolic murmur - GI/Abdominal GI/Abdominal exam: Present: normal bowel sounds, soft, no peritoneal signs. Absent: distended, tenderness - Extremities Exam Extremities exam: Present: full ROM, warm, radial pulses palpable and symmetrical. Absent: calf tenderness, cyanotic, pedal edema Internal Medicine: Result - Labs CBC & Chem 7: 07/13/17 01:19 07/13/17 01:19 Labs: Short CBC 07/13/17 Range/Units 01:19 WBC 4.8 (4.3-11.1) K/mcL Hgb 7.1 L (11.5-15.4) g/dL Hct 24.2 L (35.3-44.9) % Plt Count 248 (140-400) K/mcL Neutrophils # 2.7 (1.6-8.9) K/mcL BMP 07/13/17 01:19 Sodium 139 Potassium 3.8 Chloride 110 H Carbon Dioxide 21 L BUN 10 Creatinine 0.70 Glucose 88 Calcium 8.6 Liver Function 07/13/17 Range/Units 01:19 Total Bilirubin 0.3 (0.3-1.0) mg/dL AST 13 (13-39) Units/L ALT 13 (7-52) Units/L Alkaline Phosphatase 58 (34-104) Units/L Albumin 4.0 (3.5-5.7) g/dL - ABG Interpretation ABG results: PT/INR, D-dimer PT 21.5 Seconds (9.4-12.1) H 07/13/17 04:09 Consult Discharge Plan - Plan Referrals: Nathan Mcguire MD [Primary Care Provider] -
[2017-07-13] MEDS: Sodium Ferric Gluconat/Sucrose 125 MG in 0.9 % Sodium Chloride 100 ML IVPB SCH (16:28)
[2017-07-13] MEDS ORDERED: Warfarin perPT PO PRN (18:00)
[2017-07-13] MEDS ORDERED: *HR* Warfarin 4 MG TABLET PO ONE (18:00)
[2017-07-13 20:24] LABS: Hematocrit 30.3 % (35.3-44.9); Hemoglobin 9.2 g/dL (11.5-15.4)
[2017-07-13] MEDS: traMADol 50 MG TABLET PO PRN (22:02)
--- NOTE | 2017-07-13 22:55 | OB/GYN Consult Note ---
Date of Encounter: 07/13/17 Time of Encounter: 20:00 Assessment and Plan (1) Menorrhagia Current Visit: Yes Status: Acute Patient with long history of prolonged irregular heavy menstrual cycles and likely anovulatory bleeding. This is worsened by requirement for anticoagulation secondary to multiple prior incidents of venous thrombosis and cerebrovascular accident. She has normal pelvic ultrasound today. She has had Mirena IUD in 2014 and 2016 both of which have apparently become expelled. She thought she had IUD in place now though it is not present on current pelvic ultrasound. Flat plate of abdomen will be obtained to rule out intrauterine device within the abdominal cavity. Because of patient's hypercoagulability state without obvious cause she does require anticoagulation and is therefore not a candidate for estrogen containing oral contraceptives or hormonal treatment. She does not desire future fertility and actually is requesting hysterectomy. I advised patient that I was concerned about performing hysterectomy because of associated intraoperative and postoperative risks/with her comorbidities. We did discuss at this point I felt controlling her bleeding was very important and I did also discuss case with gynecology staff pest control service technician at [facility] this evening in the degree that best step would be to provide progestin therapy to control the bleeding starting with norethindrone acetate 10 mg daily possible up to 20 mg daily. If this does not control her bleeding she may be considered a candidate for hysteroscopy D&C with endometrial ablation to better evaluate for pathology and control bleeding and minimally invasive manner. I did advise the patient this would be somewhat risky especially given her recent she revascularize and she would definitely need to be cleared medically before a procedure such as this can be performed. Patient did not begin express desire for hysterectomy and advised that my opinion was that we definitely need to exhaust conservative measures first. I did state felt that started with progestin was a good idea given the fact that she is already anticoagulated and progestin should have minimal risk for hypercoagulation. She did agree the risk of heavy bleeding and possible morbidity and mortality associated with this was higher than the low risk of blood clotting with its associated morbidity and mortality is a side effect of progestin therapy. After answering patient's questions progestin therapy will be begin this evening I did advise patient of hysteroscopy D&C and ablation were required this would likely be in several weeks to allow her body to recover from the recent acute blood loss. As the bleeding slows Pap smear will be required. We will obtain flat plate of the abdomen to rule out retained IUD. Qualifiers: Menorrahagia type: with irregular cycle Qualified Code(s): N92.1 - Excessive and frequent menstruation with irregular cycle (2) Anemia Current Visit: Yes Status: Chronic Patient's bleeding is slowing she is now status post 4 units packed of blood cells and hemoglobin was up to 9.2 from admission hemoglobin of 5.9 Qualifiers: Anemia type: iron deficiency Iron deficiency anemia type: chronic blood loss Qualified Code(s): D50.0 - Iron deficiency anemia secondary to blood loss (chronic) (3) Hypercoagulable state Current Visit: Yes Status: Chronic History of Present Illness Consult date: 07/13/17 Reason for consult: other (Profound anemia, menometrorrhagia) Chief complaint: Heavy vaginal bleeding History of present illness: Patient's a 36-year-old 2 para 2 female admitted with profound anemia or July 11 with a hemoglobin of 5.9. She has a long history of irregular heavy menstrual bleeding has been admitted previously for evaluation transfusion and workup. She states in the past her bleeding has been controlled by Mirena IUD and she had a Mirena IUD placed in 2016 [facility] which she believed to still be in place (ultrasound today showed no IUD in uterus). 2-3 weeks ago she began having very heavy bleeding with passage of large clots overflow requiring changing pads and tampons every hour she will get up multiple times during the night and passes very large clots. Basically with very difficult to functional get out of the house. The bleeding continue this heavily until time of admission though she states her bleeding now is much associate producer and she is used only 2 pads today. At times of heavy bleeding and she has severe cramps and low abdominal pain. She denies abnormal vaginal discharge. Her situation is complicated by the fact she has history of multiple upper extremity DVTs pulmonary embolism in December 2016 had a cerebrovascular accident.she states that this happened after she stopped her Coumadin for 5 months because she started bleeding so heavily. She has seen [facility] as well as a posterior hematology and has no obvious cause for the hypercoagulability. There is mention her chart multiple times premature atrial contractions and probable atrial fibrillation at times. She states her bleeding has always been somewhat heavy the recently has become more irregular and unpredictable bleeding nearly every day. She also reports recent worsening of acne and facial hair growth and she has been struggling with weight control. She has never been given diagnosis of polycystic ovarian syndrome.her last Pap smear was in 2013 and was normal she did have a LEEP procedure for abnormal Pap smear during her first at age 15 states she has had all normal Pap smears since then. Upon admission she did feel somewhat weak and tired now status post transfusion her symptoms are improved bleeding has lessened she is having less cramping. She denies chest pain or shortness of breath. Past Med Surg Social Fam HX - Past Medical History Medical history: atrial fibrillation, CVA, DVT, hypertension, pulmonary embolus , TIA, other Psychiatric history: anxiety, depression - Past Surgical History Surgical History: other ( x 2) - Social History Smoking Status: Current some day smoker Smokeless Tobacco Status: No Alcohol use: none Drug use: none - Family History Maternal Grandfather Living Status: Hx Family Cardiac Disorders: Yes ([place]) Father Hx Family Cardiac Disorders: Yes ([place]) Medications and Allergies Aspirin 81 mg PO DAILY #30 tab 01/10/17 [Rx] Warfarin [Coumadin] 4 mg PO DAILY #30 tablet 01/10/17 [Rx] Atorvastatin [Lipitor] 10 mg PO HS 07/12/17 [History] Metoprolol Succinate [Toprol Xl] 25 mg PO DAILY 07/12/17 [History] 3 Allergy/AdvReac Type Severity Reaction Status Date / Time Sulfa (Sulfonamide Allergy BAD RASH, Verified 07/12/17 13:50 Antibiotics) THROAT SWOLLEN Review of Systems Constitutional: as per HPI, fatigue, lethargy, weakness, weight gain Exam - Vital Signs Vital signs: Initial Vital Signs Temp Pulse Resp BP Pulse Ox 98.3 F 111 16 132/83 97 07/12/17 13:16 07/12/17 13:16 07/12/17 13:16 07/12/17 13:16 07/12/17 13:16 - Constitutional Constitutional: well developed, no acute distress, morbidly obese - HEENT HEENT: EOMI, PERRL - Neck Neck exam: full ROM - Lungs Respiratory exam: CTAB - Cardiovascular Cardiovascular exam: RRR - Abdomen Abdomen: Present: bowel sounds normal, non tender - Extremities Extremities exam: full ROM, normal capillary refill Deep Tendon Reflex Grade: 2+ Normal - Vagina Vagina: Present: normal moisture - Comments Comments: Pelvic deferred until bleeding slows at which time pap can be performed. Results Result Diagrams: 07/13/17 19:58 07/13/17 01:19 Abnormal lab results RBC 3.00 M/mcL (3.82-4.97) L 07/13/17 01:19 Hgb 9.2 g/dL (11.5-15.4) L D 07/13/17 19:58 Hct 30.3 % (35.3-44.9) L 07/13/17 19:58 MCV 81.7 fL (83.0-100.0) L 07/13/17 01:19 MCH 23.7 pg (28.0-33.3) L 07/13/17 01:19 MCHC 29.0 g/dL (31.6-35.5) L 07/13/17 01:19 RDW 14.6 % (11.5-14.5) H 07/13/17 01:19 Nucleated RBCs/100 WBC 0.4 /100 WBC (0) H 07/13/17 01:19 Hypochromasia Present (Not Present) A 07/12/17 13:22 Anisocytosis 1+ (Not Present) A 07/12/17 13:22 PT 21.5 Seconds (9.4-12.1) H 07/13/17 04:09 Chloride 110 mEq/L (98-107) H 07/13/17 01:19 Carbon Dioxide 21 mEq/L (23-29) L 07/13/17 01:19 Iron < 10 mcg/dL (50-170) L 07/13/17 08:33 Ferritin < 8 ng/ml (10-120) L 07/13/17 08:33 Triglycerides 150 mg/dL (< 150) H 07/13/17 01:19 HDL Cholesterol 26 mg/dL (40-59) L 07/13/17 01:19 Urine Color Janice (Yellow) A 07/12/17 13:34 Urine Clarity Turbid (Clear) A 07/12/17 13:34 Ur Specific [place] 1.028 (1.010-1.025) H 07/12/17 13:34 Urine Protein 100 mg/dL (Neg-Trace) H 07/12/17 13:34 Urine Ketones Trace mg/dL (Negative) H 07/12/17 13:34 Urine Blood Large (Negative) H 07/12/17 13:34 Urine Bilirubin Small (Negative) H 07/12/17 13:34 Ur Leukocyte Esterase Small (Negative) H 07/12/17 13:34 Urine Microscopic RBC 50-100 per hpf (0-3) H 07/12/17 13:34 Urine Microscopic WBC 30-50 per hpf (0-3) H 07/12/17 13:34 Ur Squamous Epith Cells Many per lpf (None-Few) H 07/12/17 13:34 All other labs normal. Consult Discharge Plan - Plan Referrals: Nathan Mcguire MD [Primary Care Provider] -
[2017-07-14 05:21] LABS: Basophils % 0.5 %; Eosinophils # 0.1 K/mcL (0.0-0.6); Eosinophils % 1.4 %; Hematocrit 29.1 % (35.3-44.9); Hemoglobin 9.1 g/dL (11.5-15.4); Immature Granulocytes % 0.2 % (0-4); Lymphocytes # 1.7 K/mcL (0.6-4.6); Lymphocytes % 30.8 %; Mean Corpuscular HGB Conc 31.3 g/dL (31.6-35.5); Mean Corpuscular Hemoglobin 25.1 pg (28.0-33.3); Mean Corpuscular Volume 80.4 fL (83.0-100.0); Monocytes # 0.3 K/mcL (0.0-1.3); Monocytes % 5.1 %; Neutrophils # 3.5 K/mcL (1.6-8.9); Platelet Count 219 K/mcL (140-400); Red Blood Count 3.62 M/mcL (3.82-4.97); Red Cell Distribution Width 14.5 % (11.5-14.5)
[2017-07-14 05:30] LABS: INR 1.6; Prothrombin Time 17.4 Seconds (9.4-12.1)
[2017-07-14] MEDS: traMADol 50 MG TABLET PO PRN (05:33)
[2017-07-14] MEDS ORDERED: *HR* Warfarin 5 MG TABLET PO ONE (08:31)
[2017-07-14] MEDS: Sodium Ferric Gluconat/Sucrose 125 MG in 0.9 % Sodium Chloride 100 ML IVPB SCH (09:02)
[2017-07-14] MEDS: Metoprolol XL (24 HR) Succ 25 MG TAB.ER.24H PO SCH (09:03)
[2017-07-14] MEDS: Aspirin 81 MG TAB.CHEW PO SCH (09:03)
[2017-07-14] MEDS: Nicotine 14 MG PATCH.TD24 TD SCH (09:04)
[2017-07-14 10:21] VITALS: BP 99/66
--- NOTE | 2017-07-14 11:53 | Discharge Summary ---
Date of Encounter: 07/14/17 Time of Encounter: 09:10 - Discharge Diagnosis (1) Menorrhagia Priority: Primary Status: Acute Qualifiers: Menorrahagia type: with irregular cycle Qualified Code(s): N92.1 - Excessive and frequent menstruation with irregular cycle (2) Anemia Priority: Primary Status: Chronic Qualifiers: Anemia type: iron deficiency Iron deficiency anemia type: chronic blood loss Qualified Code(s): D50.0 - Iron deficiency anemia secondary to blood loss (chronic) (3) VTE (venous thromboembolism) Priority: Secondary Status: Chronic (4) CVA (cerebral vascular accident) Priority: Secondary Status: Chronic Qualifiers: CVA mechanism: thrombosis Precerebral and cerebral artery: unspecified cerebral artery Qualified Code(s): I63.30 - Cerebral infarction due to thrombosis of unspecified cerebral artery (5) Hypercoagulable state Priority: Secondary Status: Chronic (6) HTN (hypertension) Priority: Secondary Status: Chronic Qualifiers: Hypertension type: essential hypertension Qualified Code(s): I10 - Essential (primary) hypertension (7) Morbid obesity with BMI of 40.0-44.9, adult Priority: Secondary Status: Chronic (8) Tobacco abuse Priority: Secondary Status: Chronic Hospital course: Ms. Elliott is a 36 year old female with the above medical problems, who presented with exertional dyspnea, generalized weakness and fatigue. She was noted to have symptomatic anemia with hemoglobin of 6.1 at admission. She received a total of 4 units PRBC transfusion during this admission, hemoglobin currently stable around 9.1. She has been having issues with menorrhagia, which is suspected as the reason for acute on chronic iron deficiency anemia due to chronic blood loss. Serum iron profile shows very low iron and ferritin levels. She has followed with hematology in the past, noted to have no response to oral iron therapy. She received IV iron therapy while in the hospital. Gynecology was consulted for menorrhagia, pelvic ultrasound showed no abnormality and no IUD was noted, although patient reports she is on IUD. Abdominal x-ray was done with no IUD found. Patient was started on progesterone only therapy for menorrhagia, which would have a lower risk of hypercoagulability and thrombosis. She is on chronic anticoagulation with Coumadin with significant history of CVA and VTE in the past. Hence, invasive interventions like D&C, hysterectomy are deferred at this time. Patient is currently medically stable for discharge with outpatient gynecology follow-up. Discharge discussed with: patient Time spent discussing smoking cessation with patient: 3 to 10 minutes - Time Spent with Patient Total time spent providing and/or coordinating discharge services: Greater than 30 minutes (45 min) - Discharge Medications Prescriptions: Norethindrone Acetate 10 mg PO DAILY #60 tablet Home Medications: Aspirin 81 mg PO DAILY #30 tab 01/10/17 [Rx] Warfarin [Coumadin] 4 mg PO DAILY #30 tablet 01/10/17 [Rx] Atorvastatin [Lipitor] 10 mg PO HS 07/12/17 [History] Metoprolol Succinate [Toprol Xl] 25 mg PO DAILY 07/12/17 [History] Norethindrone Acetate 10 mg PO DAILY #60 tablet 07/14/17 [Rx] Allergies/Adverse Reactions: 3 Allergy/AdvReac Type Severity Reaction Status Date / Time Sulfa (Sulfonamide Allergy BAD RASH, Verified 07/12/17 13:50 Antibiotics) THROAT SWOLLEN Date of admission: 07/13/17 15:56 Primary care physician: Nathan Mcguire MD Discharging clinician: Eliane Galloway Anticipated date of discharge: 07/14/17 - Constitutional Vitals: Temp Pulse Resp BP Pulse Ox 97.5 F L 71 15 99/66 99 07/14/17 10:20 07/14/17 10:20 07/14/17 10:20 07/14/17 10:20 07/14/17 10:20 General appearance: Present: A&O X 3, morbidly obese, answers questions appropriately - Cardiovascular Cardiovascular exam: Present: RRR, +S1, +S2. Absent: diastolic murmur, gallop, rubs, systolic murmur - Patient Status Disposition: Home, Self-Care Condition: Good Functional capacity at discharge: independent ambulation Overall status at discharge: patient is progressing back to baseline - Discharge Instructions Follow Up With: Nathan Mcguire MD [Primary Care Provider] - 07/19/17 3:15 pm Anatoly Dow MD [Partnered Physician] - 08/08/17 2:00 pm Additional Instructions: F/up with PCP in 1-2 weeks F/up with [facility] BANK LABORATORY TECHNOLOGIST in 2-3 weeks - Diet and Activity Activity: resume usual activities as tolerated Diet: advance to your usual diet, low salt diet
== END 2017-07-14 14:55 | disposition home or self-care (01) | DRG 532 ==
LOC: EMEROO 13:11 → 3ANU 13:11
PROVIDERS: ADMIT Internal Medicine; ATTEND Internal Medicine